=== PATIENT | female | born 1965 | race Caucasian/White ===

== ENCOUNTER → 2019-05-05 15:49 | Outpatient (BNVA) | payer MEDICARE, MEDICAID, SELFPAY | PROVIDERS: Family Provider Nurse Practitioner Family; PCP Family Medicine; Visit Provider Nurse Practitioner Psychiatric/Mental Health | DX: F33.3 Major depressive disorder, recurrent, severe with psychotic symptoms (principal); F41.1 Generalized anxiety disorder; G47.33 Obstructive sleep apnea (adult) (pediatric); F78 Other intellectual disabilities | CPT/HCPCS: 99214; 99215 ==

== ENCOUNTER → 2019-05-15 13:23 | Outpatient (BNVA) | payer MEDICARE, MEDICAID, SELFPAY | PROVIDERS: Family Provider Nurse Practitioner Family; PCP Nurse Practitioner Family; Visit Provider Social Worker | DX: F33.3 Major depressive disorder, recurrent, severe with psychotic symptoms (principal); F41.1 Generalized anxiety disorder; G47.33 Obstructive sleep apnea (adult) (pediatric) | CPT/HCPCS: 90834 ==

== ENCOUNTER → 2019-06-09 10:34 | Outpatient (BNVA) | payer MEDICARE, MEDICAID, SELFPAY | PROVIDERS: Family Provider Nurse Practitioner Family; PCP Nurse Practitioner Family; Visit Provider Nurse Practitioner Psychiatric/Mental Health | DX: F33.3 Major depressive disorder, recurrent, severe with psychotic symptoms (principal); F41.1 Generalized anxiety disorder; G47.33 Obstructive sleep apnea (adult) (pediatric); F78 Other intellectual disabilities | CPT/HCPCS: 99214 ==

== ENCOUNTER → 2019-06-12 12:39 | Outpatient (BNVA) | payer MEDICARE, MEDICAID, SELFPAY | PROVIDERS: Family Provider Nurse Practitioner Family; PCP Nurse Practitioner Family; Visit Provider Social Worker | DX: F33.3 Major depressive disorder, recurrent, severe with psychotic symptoms (principal); F41.1 Generalized anxiety disorder | CPT/HCPCS: 90834 ==

== ENCOUNTER → 2019-08-05 08:19 | Outpatient (BNVA) | payer MEDICARE, MEDICAID, SELFPAY | PROVIDERS: Family Provider Nurse Practitioner Family; PCP Nurse Practitioner Family; Visit Provider Nurse Practitioner Psychiatric/Mental Health | DX: F33.3 Major depressive disorder, recurrent, severe with psychotic symptoms (principal); F41.1 Generalized anxiety disorder; G47.33 Obstructive sleep apnea (adult) (pediatric); F78 Other intellectual disabilities | CPT/HCPCS: 99214 ==

== ENCOUNTER → 2019-08-11 08:25 | Outpatient (BNVA) | payer MEDICARE, MEDICAID, SELFPAY | PROVIDERS: Family Provider Nurse Practitioner Family; PCP Nurse Practitioner Family; Visit Provider Social Worker | DX: F41.1 Generalized anxiety disorder (principal); F33.3 Major depressive disorder, recurrent, severe with psychotic symptoms; F78 Other intellectual disabilities | CPT/HCPCS: 90834 ==

== ENCOUNTER → 2019-09-08 07:43 | Outpatient (BNVA) | payer MEDICARE, MEDICAID, SELFPAY | PROVIDERS: Family Provider Nurse Practitioner Family; PCP Nurse Practitioner Family; Visit Provider Nurse Practitioner Psychiatric/Mental Health | DX: F33.3 Major depressive disorder, recurrent, severe with psychotic symptoms (principal); F41.1 Generalized anxiety disorder; G47.33 Obstructive sleep apnea (adult) (pediatric); F78 Other intellectual disabilities | CPT/HCPCS: 99214 ==

== ENCOUNTER → 2019-09-11 08:01 | Outpatient (BNVA) | payer MEDICARE, MEDICAID, SELFPAY | PROVIDERS: Family Provider Nurse Practitioner Family; PCP Nurse Practitioner Family; Visit Provider Social Worker | DX: F78 Other intellectual disabilities (principal); F41.1 Generalized anxiety disorder; F33.3 Major depressive disorder, recurrent, severe with psychotic symptoms | CPT/HCPCS: 90834 ==

== ENCOUNTER → 2019-09-25 09:18 | Outpatient (BNVA) | payer MEDICARE, MEDICAID, SELFPAY | PROVIDERS: Family Provider Nurse Practitioner Family; PCP Nurse Practitioner Family; Visit Provider Social Worker | DX: F78 Other intellectual disabilities (principal); F41.1 Generalized anxiety disorder; F33.3 Major depressive disorder, recurrent, severe with psychotic symptoms | CPT/HCPCS: 90834 ==

== ENCOUNTER → 2019-10-06 07:30 | Outpatient (BNVA) | payer MEDICARE, MEDICAID, SELFPAY | PROVIDERS: Family Provider Nurse Practitioner Family; PCP Nurse Practitioner Family; Visit Provider Nurse Practitioner Psychiatric/Mental Health | DX: F33.3 Major depressive disorder, recurrent, severe with psychotic symptoms (principal); F41.1 Generalized anxiety disorder; G47.33 Obstructive sleep apnea (adult) (pediatric); F78 Other intellectual disabilities; Z79.899 Other long term (current) drug therapy | CPT/HCPCS: 99214 ==

== ENCOUNTER → 2019-10-07 08:38 | Outpatient (BNVA) | payer MEDICARE, MEDICAID, SELFPAY | PROVIDERS: Family Provider Nurse Practitioner Family; PCP Nurse Practitioner Family; Visit Provider Nurse Practitioner Psychiatric/Mental Health | DX: Z79.899 Other long term (current) drug therapy (principal) | CPT/HCPCS: 80053; 80061; 83036; 85025 ==

== ENCOUNTER → 2019-10-20 07:32 | Outpatient (BNVA) | payer MEDICARE, MEDICAID, SELFPAY | PROVIDERS: Family Provider Nurse Practitioner Family; PCP Nurse Practitioner Family; Visit Provider Nurse Practitioner Psychiatric/Mental Health | DX: F33.3 Major depressive disorder, recurrent, severe with psychotic symptoms (principal); F41.1 Generalized anxiety disorder; G47.33 Obstructive sleep apnea (adult) (pediatric); F78 Other intellectual disabilities | CPT/HCPCS: 99214 ==

== ENCOUNTER → 2019-11-04 07:42 | Outpatient (BNVA) | payer MEDICARE, MEDICAID, SELFPAY | PROVIDERS: Family Provider Nurse Practitioner Family; PCP Nurse Practitioner Family; Visit Provider Nurse Practitioner Psychiatric/Mental Health | DX: F33.3 Major depressive disorder, recurrent, severe with psychotic symptoms (principal); F41.1 Generalized anxiety disorder; G47.33 Obstructive sleep apnea (adult) (pediatric); F78 Other intellectual disabilities | CPT/HCPCS: 99214 ==

== ENCOUNTER → 2019-11-21 07:41 | Outpatient (BNVA) | payer MEDICARE, MEDICAID, SELFPAY | PROVIDERS: Family Provider Nurse Practitioner Family; PCP Nurse Practitioner Family; Visit Provider Nurse Practitioner Psychiatric/Mental Health | DX: F33.3 Major depressive disorder, recurrent, severe with psychotic symptoms (principal); F41.1 Generalized anxiety disorder; G47.33 Obstructive sleep apnea (adult) (pediatric); F79 Unspecified intellectual disabilities | CPT/HCPCS: 99214 ==

== ENCOUNTER → 2019-12-03 07:43 | Outpatient (BNVA) | payer MEDICARE, MEDICAID, SELFPAY | PROVIDERS: Family Provider Nurse Practitioner Family; PCP Nurse Practitioner Family; Visit Provider Nurse Practitioner Psychiatric/Mental Health | DX: F33.3 Major depressive disorder, recurrent, severe with psychotic symptoms (principal); F41.1 Generalized anxiety disorder; G47.33 Obstructive sleep apnea (adult) (pediatric); F78 Other intellectual disabilities | CPT/HCPCS: 99214 ==

== ENCOUNTER → 2019-12-15 08:23 | Outpatient (BNVA) | payer MEDICARE, MEDICAID, SELFPAY | PROVIDERS: Family Provider Nurse Practitioner Family; PCP Nurse Practitioner Family; Visit Provider Nurse Practitioner Psychiatric/Mental Health | DX: F41.1 Generalized anxiety disorder (principal); G47.33 Obstructive sleep apnea (adult) (pediatric); F78 Other intellectual disabilities; F33.3 Major depressive disorder, recurrent, severe with psychotic symptoms | CPT/HCPCS: 99214 ==

== ENCOUNTER 2019-12-15 20:52 | Emergency (ER) | payer MEDICARE, MEDICAID, SELFPAY ==
[2019-12-15 20:53] VITALS: BP 135/101; PULSE 54; RESP 16; TEMP 36.7; O2SAT 98; BMI 48.4
--- NOTE | 2019-12-15 20:57 | ECG_ITS ---
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 Measurements Intervals Gap Rate: 54 P: 30 NH: 145 QRS: 14 QRSD: 94 T: 53 QT: 423 QTc: 404 Interpretive Statements SINUS BRADYCARDIA LOW QRS VOLTAGE IN PRECORDIAL LEADS [QRS DEFLECTION < 1.0 mV IN CHEST LEADS] POSSIBLE RIGHT VENTRICULAR CONDUCTION DELAY [RSR (QR) IN V1/V2] No previous ECG available for comparison Electronically Signed On 12-16-2019 17:25:33 CDT by Jos Ladd M.D. [id number]
--- NOTE | 2019-12-15 20:59 | W.ED.WEAKNES ---
HPI - Weakness General: Chief complaint: Weakness Stated complaint: WAKNESS Time Seen by Provider: 12/15/19 20:53 Source: patient Mode of arrival: ambulatory Limitations: no limitations History of Present Illness: HPI Narrative: 54-year-old female who states she was outside walking her dog this evening started to feel weak and having some dizziness. She states she fell like she got too hot. She states she feels improved now but still does have some slight dizziness when she stands. Denies any vomiting or diarrhea. Denies any fevers. Associated symptoms: Denies chest pain, chills, dysuria, easy bruising, fever(s), nausea or vomiting Review of Systems Const: Denies: fever(s), chills, body aches or change in appetite Eyes: Denies: blurry vision or eye discomfort ENMT: Denies: throat pain or dental pain Card: Denies: chest pain Resp: Denies: dyspnea GI: Denies: abdominal pain, nausea, vomiting or diarrhea : Denies: dysuria Musc: Reports: muscle weakness Skin/Breast: Denies: rash Neuro: Reports: dizziness Psych: Denies: depression Devaughn/Lymph: Denies: easy bruising All/Imm: Denies: urticaria PFSH ED PFSH: Medical History Generalized anxiety disorder 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, recurrent episode with mood-congruent psychotic features Obstructive sleep apnea Social History Smoking and tobacco status: never smoked Physical Exam Const: COMMON NORMALS: no acute distress, patient oriented x3 and healthy appearing HENMT: COMMON NORMALS: normocephalic and atraumatic HEAD & SCALP: normocephalic and atraumatic Eye: COMMON NORMALS: Equal, round and reactive pupils present and EOMs intact bilaterally PUPIL: Yes Equal, round and reactive pupils present Neck/C-Spine: COMMON NORMALS: full ROM and supple Chest: COMMONS NORMALS: normal inspection of the chest and normal palpation of entire chest wall Resp: COMMON NORMALS: normal respiratory effort, No retractions, No use of accessory muscles and clear to auscultation bilaterally AUSCULTATION: clear to auscultation bilaterally Cardio: COMMON NORMALS: regular rate, regular rhythm and No murmurs present (Cardio) RATE: regular rate RHYTHM: regular rhythm GI: COMMON NORMALS: Normal to inspection, nondistended, normoactive bowel sounds present, Soft to palpation, non-tender and no masses PALPATION: Yes Soft to palpation Extremity: COMMON NORMALS: normal to inspection and full ROM Neuro: COMMON NORMALS: patient oriented x3, moves all extremities and no focal motor deficits Psych: COMMON NORMALS: mental status grossly normal, Normal thought process present and cooperative THOUGHT PROCESS: Normal thought process present Skin: COMMON NORMALS: no rashes or lesions noted and no wounds GENERAL SKIN EXAM: no rashes or lesions noted Course Vital Signs: Vital signs: Vital Signs Temperature 98.0 F 12/15/19 20:53 Pulse Rate 89 12/15/19 21:33 Respiratory Rate 16 12/15/19 21:33 Blood Pressure 135/98 12/15/19 21:33 Pulse Oximetry 95 12/15/19 21:33 MDM - Weakness MDM Narrative: Medical decision making narrative: Patient presents here with dizziness along with slight weakness likely due to heat exposure. She feels much improved here. Patient's blood work here is normal and she has no signs of cardiac cause. She is stable for discharge and return if worsening. Lab Data: Labs: Lab Results 12/15/19 12/15/19 Range/Units 21:00 21:00 WBC 9.2 (4.0-10.0) 10^3/ uL RBC 4.62 (4.1-5.3) 10^6/u L Hgb 13.0 (11.5-15.3) g/dL Hct 41.0 (37.0-47.0) % MCV 88.7 (81-99) fL MCH 28.1 (28.0-34.0) pg MCHC 31.7 (30.0-36.0) g/dL RDW 12.7 (12.1-15.1) % Plt Count 236 (130-400) 10^3/c mm MPV 10.5 H (7.4-10.4) fL Neut % (Auto) 65.4 % Lymph % (Auto) 26.4 % Rains % (Auto) 7.5 % Eos % (Auto) 0.0 % Baso % (Auto) 0.3 % Neut # (Auto) 5.97 (1.8-7.7) 10^3/u L Lymph # (Auto) 2.4 (0.8-4.8) 10^3/u L Rains # (Auto) 0.7 (0.2-0.9) 10^3/u L Eos # (Auto) 0.0 (0.0-0.8) 10^3/u L Baso # (Auto) 0.0 (0.0-0.1) 10^3/u L Nucleated RBC % (a uto) 0 % Nucleated RBCs # 0.0 /100WBC Sodium 136 (136-145) mmol/L Potassium 4.1 (3.5-5.1) mmol/L Chloride 101 (98-107) mmol/L Carbon Dioxide 27 (22-29) mmol/L Anion Gap 12.1 (5-19) BUN 12 (6-20) mg/dL Creatinine 0.6 (0.5-0.9) mg/dL GFR Calculation 104.2 (90-130) mL/min Glucose 103 (65-115) mg/dL Calculated Osmolal ity 278 L (285-295) mOsm/k g Calcium 9.9 (8.5-10.5) mg/dL Total Bilirubin 0.2 (0.15-1.2) mg/dL AST 13 (0-32) U/L ALT 15 (0-33) U/L Alkaline Phosphata se 104 (35-105) IU/L Total Protein 7.2 (6.6-8.7) g/dL Albumin 4.3 (3.5-5.2) g/dL Globulin 2.9 (1.3-4.6) g/dL EKG Data^: EKG 1: Attestation: I personally reviewed and interpreted this EKG as follows: EKG interpretation date: 12/15/19 EKG interpretation time: 21:12 Interpretation: sinus melani hr [address] or t wave abnormalities qrs 94 qtc 410 Discharge Plan Discharge Patient Disposition: Home Clinical Impression: Dizziness Condition: Stable Prescriptions: No Action levothyroxine 100 mcg capsule 100 mcg PO ONCE RF: 0 ibuprofen 200 mg capsule 600 mg PO DAILY PRNRF: 0 simvastatin 10 mg tablet 10 mg PO ONCE RF: 0 cetirizine [Zyrtec] 10 mg tablet 10 mg PO ONCE RF: 0 triamcinolone acetonide [Triderm] 0.1 % cream 1 applic TOPICAL BID PRNRF: 0 fluticasone propionate [Flonase Allergy Relief] 50 mcg/actuation spray,suspension 2 spray INTRANASAL DAILY PRNRF: 0 Multivitamin Women 50 Plus 8 mg iron-400 mcg-300 mcg tablet 1 tab PO DAILY RF: 0 risperidone [Risperdal] 0.5 mg tablet 0.5 mg PO QAM Qty: 90 RF: 2 risperidone [Risperdal] 0.5 mg tablet 1 mg PO .QHS Qty: 180 RF: 2 benztropine 1 mg tablet 1 mg PO BID Qty: 180 RF: 2 buspirone 15 mg tablet 15 mg PO TID Qty: 270 RF: 2 sertraline [Zoloft] 100 mg tablet 200 mg PO .morning Qty: 180 RF: 2 Colace Clear 50 mg capsule 50 mg PO DAILY PRNRF: 0 propranolol 10 mg tablet 10 mg PO .morning Qty: 30 RF: 3 diazepam [Valium] 5 mg tablet 5 mg PO TID PRN (Reason: anxiety) Qty: 90 RF: 3 Discharge Orders: Discharge Order (Routine); Ordered 12/15/19 Ordered By: Celine Minor Referrals: MARIPOSA ISBELL EMBOSSING CALENDER OPERATOR [Primary Care Provider] - 1-3 days Discharge Diet: Advance as tolerated Discharge Activity: Resume usual activity Patient Instructions: Dizziness (ED) Coding Level of Care Code ED Education Diagnostician for Tiffanie Fwcaitlin Exam Comprehensive
[2019-12-15 21:07] LABS: Basophils % 0.3 %; Lymphocytes # 2.4 10^3/uL (0.8-4.8); Lymphocytes % 26.4 %; Mean Corpuscular HGB Conc 31.7 g/dL (30.0-36.0); Mean Corpuscular Hemoglobin 28.1 pg (28.0-34.0); Mean Corpuscular Volume 88.7 fL (81-99); Mean Platelet Volume 10.5 fL (7.4-10.4); Monocytes # 0.7 10^3/uL (0.2-0.9); Monocytes % 7.5 %; Neutrophils # 5.97 10^3/uL (1.8-7.7); Neutrophils % 65.4 %; Nucleated Red Blood Cells % 0 %; Platelet Count 236 10^3/cmm (130-400); Red Blood Count 4.62 10^6/uL (4.1-5.3); Red Cell Distribution Width 12.7 % (12.1-15.1); White Blood Count 9.2 10^3/uL (4.0-10.0)
[2019-12-15] MEDS: sodium chloride 0.9% 1,000 ML 999 ML IV (21:14)
[2019-12-15 21:25] LABS: Alanine Aminotransferase 15 U/L (0-33); Albumin Level 4.3 g/dL (3.5-5.2); Alkaline Phosphatase 104 IU/L (35-105); Anion Gap 12.1 (5-19); Aspartate Amino Transferase 13 U/L (0-32); Blood Urea Nitrogen 12 mg/dL (6-20); Calcium 9.9 mg/dL (8.5-10.5); Carbon Dioxide 27 mmol/L (22-29); Chloride 101 mmol/L (98-107); Creatinine Clr Calc Pharmacy 152.3106; Globulin 2.9 g/dL (1.3-4.6); Glomerular Filtration Rate 104.2 mL/min (90-130); Glucose 103 mg/dL (65-115); Osmolality Calculated 278 mOsm/kg (285-295); Potassium 4.1 mmol/L (3.5-5.1); Sodium 136 mmol/L (136-145); Total Bilirubin 0.2 mg/dL (0.15-1.2); Total Protein 7.2 g/dL (6.6-8.7)
[2019-12-15 21:33] VITALS: BP 135/98; PULSE 89; RESP 16; O2SAT 95
[2019-12-15 22:12] VITALS: BP 132/87; PULSE 87; RESP 16; O2SAT 98
== END 2019-12-15 22:13 | disposition home or self-care (01) ==
PROVIDERS: Emergency Provider Emergency Medicine; PCP Nurse Practitioner Family
DX: R42 Dizziness and giddiness (principal)
CPT/HCPCS: 12345; 36415; 80053; 85025; 93005; 96360; 99282; 99283; J7030

== ENCOUNTER → 2019-12-30 07:17 | Outpatient (BNVA) | payer MEDICARE, MEDICAID, SELFPAY | PROVIDERS: PCP Nurse Practitioner Family; Visit Provider Nurse Practitioner Psychiatric/Mental Health | DX: F33.3 Major depressive disorder, recurrent, severe with psychotic symptoms (principal); F41.1 Generalized anxiety disorder; G47.33 Obstructive sleep apnea (adult) (pediatric); F78 Other intellectual disabilities | CPT/HCPCS: 99214 ==

== ENCOUNTER → 2020-01-07 09:11 | Outpatient (BNVA) | payer OTHER, SELFPAY | PROVIDERS: PCP Nurse Practitioner Family; Visit Provider Nurse Practitioner Psychiatric/Mental Health | DX: F33.3 Major depressive disorder, recurrent, severe with psychotic symptoms (principal); F41.1 Generalized anxiety disorder; Z79.899 Other long term (current) drug therapy | CPT/HCPCS: 80061; 83036 ==

== ENCOUNTER → 2020-01-14 07:27 | Outpatient (BNVA) | payer MEDICARE, MEDICAID, SELFPAY ==
[2020-01-12 14:26] VITALS: BP 132/71; BMI 45.1
== END ==
PROVIDERS: PCP Nurse Practitioner Family; Visit Provider Nurse Practitioner Psychiatric/Mental Health
DX: F33.3 Major depressive disorder, recurrent, severe with psychotic symptoms (principal); F41.1 Generalized anxiety disorder; G47.33 Obstructive sleep apnea (adult) (pediatric); F78 Other intellectual disabilities
CPT/HCPCS: 99214

== ENCOUNTER → 2020-01-26 07:44 | Outpatient (BNVA) | payer MEDICARE, MEDICAID, SELFPAY ==
[2020-01-21 10:33] VITALS: BP 132/71; BMI 45.1
== END ==
PROVIDERS: PCP Nurse Practitioner Family; Visit Provider Nurse Practitioner Psychiatric/Mental Health
DX: F33.3 Major depressive disorder, recurrent, severe with psychotic symptoms (principal); F41.1 Generalized anxiety disorder; G47.33 Obstructive sleep apnea (adult) (pediatric); F78 Other intellectual disabilities
CPT/HCPCS: 99214

== ENCOUNTER 2020-01-30 21:51 | Emergency (ER) | payer MEDICARE, MEDICAID, SELFPAY ==
[2020-01-21 10:33] VITALS: BP 132/71; BMI 45.1
[2020-01-30 21:58] VITALS: BP 152/84; PULSE 63; RESP 18; TEMP 37; O2SAT 94; BMI 46.0
--- NOTE | 2020-01-30 22:02 | CTR_ITS ---
PROCEDURE INFORMATION: Exam: CT Head Without Contrast Exam date and time: 01/30/2020 10:06 PM Age: 54 years old Clinical indication: Injury or trauma; Fall; Blunt trauma (contusions or hematomas); Without loss of consciousness; Additional info: Fall/injury TECHNIQUE: Imaging protocol: Computed tomography of the head without contrast. Radiation optimization: All CT scans at this facility use at least one of these dose optimization techniques: automated exposure control; mA and/or kV adjustment per patient size (includes targeted exams where dose is matched to clinical indication); or iterative reconstruction. COMPARISON: No relevant prior studies available. RADIATION DOSE METRICS: Total DLP (mGy-cm): 861.35 FINDINGS: Brain: Normal. No hemorrhage. Unremarkable white matter. No mass effect. Cerebral ventricles: No ventriculomegaly. Bones/joints: Unremarkable. No acute fracture. Paranasal sinuses: Visualized sinuses are unremarkable. No fluid levels. Mastoid air cells: Left mastoid and middle ear opacification. Soft tissues: Parietal scalp hematoma. CT/CT head wo con* [id number] IMPRESSION: 1. No acute intracranial abnormality. 2. Parietal scalp hematoma. 3. Left mastoid and middle ear opacification. Radiation Dose CTDIVOL = (mGy): DLP = 861.35 (mGy-cm)
--- NOTE | 2020-01-30 22:02 | XRR_ITS ---
PROCEDURE INFORMATION: Exam: XR Right Knee Exam date and time: 01/30/2020 10:27 PM Age: 54 years old Clinical indication: Injury or trauma; Fall; Blunt trauma; Patient HX: Fell while walking dog, right knee pain; Additional info: Fall/injury TECHNIQUE: Imaging protocol: XR Right knee. Views: 3 views. COMPARISON: No relevant prior studies available. FINDINGS: Bones/joints: Moderate tricompartmental degenerative joint disease. Soft tissues: Normal. XR/XR knee RT 3V* [id number] IMPRESSION: Moderate tricompartmental degenerative joint disease.
[2020-01-30] MEDS: ondansetron 4 MG Tablet 8 MG PO (23:19)
--- NOTE | 2020-01-30 23:35 | W.ED.FALL ---
HPI - Fall General: Chief Complaint: Fall Stated Complaint: head trauma, head lac Time Seen by Provider: 01/30/20 22:02 Source: patient and EMS Mode of arrival: EMS Limitations: no limitations History of Present Illness: HPI Narrative: Emely is a nice 54-year-old female who tripped walking outside tonight walking her dog. She fell and hit her head. She has a severe headache but denies any loss of consciousness. She denies any neck pain. She also did hurt her right knee she is uncertain if she twisted it or landed on it. She denies any other injuries. She is not any blood thinners. She is not been nauseated or had any vomiting. Associated symptoms-after fall: Reports headache(s); Denies abdominal pain, chest pain, confusion, difficulty walking, hematuria, lightheadedness, neck pain or vertigo Review of Systems Const: Denies: fever(s), chills, body aches, fatigue, malaise or diaphoresis Eyes: Denies: change in vision, blurry vision, photophobia, eye discomfort, eye discharge, eye redness or yellow eyes ENMT: Denies: throat pain, odynophagia, hoarseness, swelling of lips/tongue, ear or mastoid pain, ear discharge, change in hearing or nasal discharge Card: Denies: chest pain, palpitations, irregular heart rhythm, edema, lightheadedness, syncope, pre-syncope, dyspnea on exertion or orthopnea Resp: Denies: dyspnea, productive cough, non-productive cough, wheezing, hemoptysis or chest congestion GI: Denies: abdominal pain, nausea, vomiting, hematemesis, coffee ground emesis, heartburn, diarrhea, constipation, GI cramping, hematochezia or melena : Denies: flank pain, dysuria, urinary frequency, urinary urgency or hematuria Musc: Reports: joint pain; Denies: neck pain, back pain, extremity pain, extremity swelling, joint swelling, joint redness, joint warmth or joint stiffness Skin/Breast: Denies: rash, pruritus, erythema, skin pain or skin tenderness Neuro: Reports: headache(s); Denies: numbness in extremities, weakness in extremities, sensory changes, lack of coordination, difficulty walking, dizziness, vertigo, confusion, Slurred speech present or seizure-like activity Edvaughn/Lymph: Denies: easy bruising, easy bleeding, petechiae, purpura or enlarged lymph nodes All/Imm: Denies: urticaria, throat swelling, tongue swelling, facial swelling or acute wheezing PFSH ED PFSH: Medical History Generalized anxiety disorder 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, recurrent episode with mood-congruent psychotic features Obstructive sleep apnea Family History Grandfather CAD (coronary artery disease) Grandmother CHF (congestive heart failure) Father Cancer Mother COPD (chronic obstructive pulmonary disease) CHF (congestive heart failure) Hypertension Afib Sister CHF (congestive heart failure) Social History Smoking and tobacco status: never smoked Alcohol intake: never Marital status: Single Current gender identity: Female Physical Exam Const: COMMON NORMALS: no acute distress, patient oriented x3, no limitations and alert GENERAL APPEARANCE: cooperative HENMT: COMMON NORMALS: normocephalic, atraumatic, external ears normal, EAC's normal and Normal external nose present HEAD & SCALP: normal to inspection, normocephalic and atraumatic FACE & SINUS: normal facial exam and face symmetric NOSE: Normal external nose present and Normal nares present EXTERNAL EAR: Yes external ears normal EXTERNAL AUDITORY CANAL: EAC's normal MOUTH: Normal oral and palatal mucosa present, lip normal and tongue normal Eye: COMMON NORMALS: Equal, round and reactive pupils present and conjunctivae normal GENERAL EYE: appearance normal, both eyes and all related structures ALIGNMENT: Yes alignment normal PERIORBITAL: periorbital findings normal EYELID: eyelids normal CONJUNCTIVA: Yes conjunctivae normal SCLERA: sclerae normal PUPIL: Yes Equal, round and reactive pupils present Neck/C-Spine: COMMON NORMALS: full ROM, no lymphadenopathy, supple, no meningeal signs and no JVD GENERAL: Yes normal visual inspection and Yes trachea midline Chest: COMMONS NORMALS: normal inspection of the chest and normal palpation of entire chest wall Resp: COMMON NORMALS: normal respiratory effort, No retractions, No use of accessory muscles and clear to auscultation bilaterally EFFORT & INSPECTION: Yes able to speak in complete sentences and Yes symmetric chest movement AUSCULTATION: clear to auscultation bilaterally, no crackles, no rales, no rhonchi and no wheezes Cardio: COMMON NORMALS: no JVD, regular rate, regular rhythm, S1 normal heart sound present and S2 normal heart sound present RATE: regular rate RHYTHM: regular rhythm HEART SOUNDS: S1 normal heart sound present, S2 normal heart sound present, no click, no gallops, no murmurs and no rubs GI: COMMON NORMALS: Soft to palpation and No hepatosplenomegaly present PALPATION: Yes Soft to palpation, No Tenderness to palpation present (GI), No Guarding due to palpation present (GI), No Rigid due to palpation, Yes No hepatosplenomegaly present, No Hernia present, No Palpable mass present and No Pulsatile mass present : COMMON NORMALS: Yes no CVA tenderness BLADDER/KIDNEY EXAM: Yes no CVA tenderness EXTERNAL FEMALE EXAM: No Hernia present Back/Pelvis: COMMON NORMALS: no CVA tenderness, thoracic and lumbar spine normal to inspection, no thoracic nor lumbar tenderness and thoraco-lumbar ROM normal Extremity: COMMON NORMALS: normal to inspection, full ROM, capillary refill normal, no joint enlargement, no clubbing, cyanosis or edema and no calf tenderness Neuro: COMMON NORMALS: patient oriented x3, CN's II-XII intact bilaterally, moves all extremities, no focal motor deficits and no sensory deficits noted SENSORIUM/ORIENTATION: Yes alert MENINGEAL SIGNS: Yes no meningeal signs SPEECH: speech normal Psych: COMMON NORMALS: mental status grossly normal, Normal thought process present, cooperative, normal affect, speech normal and activity/motor behavior normal SPEECH: Yes normal speech THOUGHT PROCESS: Normal thought process present Skin: COMMON NORMALS: no rashes or lesions noted, turgor normal, no jaundice, no petechiae and no mottling GENERAL SKIN EXAM: no rashes or lesions noted and turgor normal Course Vital Signs: Vital signs: Vital Signs Temperature 98.6 F 01/30/20 21:58 Pulse Rate 67 01/30/20 23:48 Respiratory Rate 16 01/30/20 23:48 Blood Pressure 123/76 01/30/20 23:48 Pulse Oximetry 99 01/30/20 23:48 MDM - Fall MDM Narrative: Medical decision making narrative: 2339 -patient is able to ambulate here without any difficulty. She denies having other complaints at this time. I will go ahead and discharge her home with instructions to follow-up with the orthopedic doctor to recheck her knee. I have also sent her home with concussion instructions. She did have some nausea while she was here so we will also discharge her with Zofran. Imaging Data^: XR Right Knee: Attestation: I personally reviewed and interpreted this imaging study as follows: My impression: No acute fractures or dislocations Discharge Plan Discharge Patient Disposition: Home Clinical Impression: Concussion without loss of consciousness Qualifiers: Encounter type: initial encounter Qualified Code(s): S06.0X0A - Concussion without loss of consciousness, initial encounter Contusion of knee, right Qualifiers: Encounter type: initial encounter Qualified Code(s): S80.01XA - Contusion of right knee, initial encounter Condition: Stable Prescriptions: No Action levothyroxine 100 mcg capsule 100 mcg PO ONCE RF: 0 ibuprofen 200 mg capsule 600 mg PO DAILY PRNRF: 0 simvastatin 10 mg tablet 10 mg PO ONCE RF: 0 cetirizine [Zyrtec] 10 mg tablet 10 mg PO ONCE RF: 0 triamcinolone acetonide [Triderm] 0.1 % cream 1 applic TOPICAL BID PRNRF: 0 fluticasone propionate [Flonase Allergy Relief] 50 mcg/actuation spray,suspension 2 spray INTRANASAL DAILY PRNRF: 0 Multivitamin Women 50 Plus 8 mg iron-400 mcg-300 mcg tablet 1 tab PO DAILY RF: 0 risperidone [Risperdal] 0.5 mg tablet 0.5 mg PO QAM Qty: 90 RF: 2 risperidone [Risperdal] 0.5 mg tablet 1 mg PO .QHS Qty: 180 RF: 2 sertraline [Zoloft] 100 mg tablet 200 mg PO .morning Qty: 180 RF: 2 buspirone 15 mg tablet 15 mg PO TID Qty: 270 RF: 2 benztropine 1 mg tablet 1 mg PO BID Qty: 180 RF: 2 propranolol 10 mg tablet 10 mg PO .morning Qty: 90 RF: 2 Colace Clear 50 mg capsule 50 mg PO DAILY PRNRF: 0 diazepam [Valium] 5 mg tablet 5 mg PO TID PRN (Reason: anxiety) Qty: 90 RF: 3 Discharge Orders: Discharge Order (Routine); Ordered 01/30/20 Ordered By: Genie Estevez Referrals: MARIPOSA ISBELL CLIENT EXPERIENCE CONSULTANT [Primary Care Provider] - 1-3 days Discharge Diet: Advance as tolerated Discharge Activity: Increase activity as tolerated Patient Instructions: Concussion (ED) Activity Restrictions/Additional Instructions: Please return to the ER immediately for any of the signs or symptoms listed on your discharge instruction sheets, worsening/changing of your symptoms, you are not getting better as quickly as expected, or for ANY other cause or concerns. Discharge Date/Time: 01/30/20 23:50 Coding Level of Care Code ED Emergency Medical Dispatcher for Naomig Fwd Exam Comprehensive
[2020-01-30 23:48] VITALS: BP 123/76; PULSE 67; RESP 16; O2SAT 99
== END 2020-01-30 23:50 | disposition home or self-care (01) ==
PROVIDERS: Emergency Provider Emergency Medicine; PCP Nurse Practitioner Family
DX: S06.0X0A Concussion without loss of consciousness, initial encounter (principal); S80.01XA Contusion of right knee, initial encounter; W01.0XXA Fall on same level from slipping, tripping and stumbling without subsequent striking against object, initial encounter
CPT/HCPCS: 12345; 70450; 73562; 99281; 99283; Q0162

== ENCOUNTER → 2020-02-11 07:26 | Outpatient (BNVA) | payer MEDICARE, MEDICAID, SELFPAY ==
[2020-01-21 10:33] VITALS: BP 132/71; BMI 45.1
== END ==
PROVIDERS: PCP Nurse Practitioner Family; Visit Provider Nurse Practitioner Psychiatric/Mental Health
DX: F33.3 Major depressive disorder, recurrent, severe with psychotic symptoms (principal); F41.1 Generalized anxiety disorder; G47.33 Obstructive sleep apnea (adult) (pediatric); F78 Other intellectual disabilities
CPT/HCPCS: 99214

== ENCOUNTER → 2020-02-25 07:26 | Outpatient (BNVA) | payer MEDICARE, MEDICAID, SELFPAY ==
[2020-02-19 10:36] VITALS: BP 132/71; BMI 45.1
== END ==
PROVIDERS: PCP Nurse Practitioner Family; Visit Provider Nurse Practitioner Psychiatric/Mental Health
DX: F33.3 Major depressive disorder, recurrent, severe with psychotic symptoms (principal); F41.1 Generalized anxiety disorder; G47.33 Obstructive sleep apnea (adult) (pediatric); F78 Other intellectual disabilities; F43.12 Post-traumatic stress disorder, chronic
CPT/HCPCS: 99214

== ENCOUNTER → 2020-03-10 07:31 | Outpatient (BNVA) | payer MEDICARE, MEDICAID, SELFPAY ==
[2020-02-19 10:36] VITALS: BP 132/71; BMI 45.1
== END ==
PROVIDERS: PCP Nurse Practitioner Family; Visit Provider Nurse Practitioner Psychiatric/Mental Health
DX: F33.3 Major depressive disorder, recurrent, severe with psychotic symptoms (principal); F41.1 Generalized anxiety disorder; G47.33 Obstructive sleep apnea (adult) (pediatric); F78 Other intellectual disabilities
CPT/HCPCS: 99214

== ENCOUNTER → 2020-03-24 07:35 | Outpatient (BNVA) | payer MEDICARE, MEDICAID, SELFPAY ==
[2020-02-19 10:36] VITALS: BP 132/71; BMI 45.1
== END ==
PROVIDERS: PCP Nurse Practitioner Family; Visit Provider Nurse Practitioner Psychiatric/Mental Health
DX: F33.3 Major depressive disorder, recurrent, severe with psychotic symptoms (principal); F41.1 Generalized anxiety disorder; G47.33 Obstructive sleep apnea (adult) (pediatric); F78 Other intellectual disabilities
CPT/HCPCS: 99214

== ENCOUNTER → 2020-04-07 07:38 | Outpatient (BNVA) | payer MEDICARE, MEDICAID, SELFPAY ==
[2020-03-30 11:13] VITALS: BP 132/71; BMI 45.1
== END ==
PROVIDERS: PCP Nurse Practitioner Family; Visit Provider Nurse Practitioner Psychiatric/Mental Health
DX: F33.3 Major depressive disorder, recurrent, severe with psychotic symptoms (principal); F41.1 Generalized anxiety disorder; G47.33 Obstructive sleep apnea (adult) (pediatric); F78 Other intellectual disabilities
CPT/HCPCS: 99214

== ENCOUNTER → 2020-05-12 07:37 | Outpatient (BNVA) | payer MEDICARE, MEDICAID, SELFPAY ==
[2020-05-10 11:28] VITALS: BP 132/71; BMI 45.1
== END ==
PROVIDERS: PCP Nurse Practitioner Family; Visit Provider Nurse Practitioner Psychiatric/Mental Health
DX: F33.3 Major depressive disorder, recurrent, severe with psychotic symptoms (principal); F41.1 Generalized anxiety disorder; G47.33 Obstructive sleep apnea (adult) (pediatric); F78 Other intellectual disabilities
CPT/HCPCS: 99214

== ENCOUNTER 2020-05-28 09:44 | Outpatient (CLI) | payer MEDICARE, MEDICAID, SELFPAY ==
[2020-05-10 11:28] VITALS: BP 132/71; BMI 45.1
--- NOTE | 2020-05-28 09:51 | MM_ITS ---
WS: [id number] BILATERAL DIGITAL SCREENING MAMMOGRAPHY WITH CAD CLINICAL INFORMATION: SCREENING HISTORY: Screening mammogram. No current complaints. COMPARISON: TECHNIQUE: Bilateral CC and MLO views. FINDINGS: The breasts are composed of heterogeneous fibroglandular density tissue, which can limit the detectio n of small underlying mass lesions. Stable 10 mm nodular density inferior medial left breast No suspi cious mass, asymmetry, calcifications, or architectural distortion. No evidence of malignancy. Dystro phic calcification left breast. Intramammary lymph node posterior superior right breast is unchanged. MM/[place] [id number] IMPRESSION: BI-RADS: 2-Benign FOLLOW UP: 1 Year Follow-up Recommend return to annual screening mammography.
== END 2020-05-28 09:45 | disposition home or self-care (01) ==
LOC: RADSHAW 09:46
PROVIDERS: PCP Nurse Practitioner Family; Visit Provider Nurse Practitioner Family
DX: Z12.31 Encounter for screening mammogram for malignant neoplasm of breast (principal)
CPT/HCPCS: 77067; 99214

== ENCOUNTER → 2020-06-14 07:34 | Outpatient (BNVA) | payer MEDICARE, MEDICAID, SELFPAY ==
[2020-05-10 11:28] VITALS: BP 132/71; BMI 45.1
== END ==
PROVIDERS: PCP Nurse Practitioner Family; Visit Provider Nurse Practitioner Psychiatric/Mental Health
DX: F33.3 Major depressive disorder, recurrent, severe with psychotic symptoms (principal); F41.1 Generalized anxiety disorder; G47.33 Obstructive sleep apnea (adult) (pediatric); F78 Other intellectual disabilities
CPT/HCPCS: 99214

== ENCOUNTER 2020-06-21 09:20 | Inpatient (IN) | payer MEDICARE, MEDICAID, SELFPAY ==
[2020-05-10 11:28] VITALS: BP 132/71; BMI 45.1
[2020-06-21 09:20] VITALS: BP 133/75; PULSE 62; RESP 17; TEMP 36.6; O2SAT 97; BMI 46.3
--- NOTE | 2020-06-21 09:21 | ECG_ITS ---
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 Measurements Intervals [place] Rate: 55 P: 26 [place]: 129 QRS: 22 QRSD: 92 T: 40 QT: 417 QTc: 401 Interpretive Statements SINUS BRADYCARDIA LOW QRS VOLTAGE IN PRECORDIAL LEADS [QRS DEFLECTION < 1.0 mV IN CHEST LEADS] Compared to ECG 12/15/2019 21:12:50 No significant changes Electronically Signed On 06-21-2020 18:53:03 HELICOPTER MECHANIC by Alvarez Devi M.D. [email or web address] [id number]
--- NOTE | 2020-06-21 09:30 | ED_ITS ---
HPI - Psych General: Chief Complaint: Psychiatric Symptoms Stated Complaint: SI Time Seen by Provider: 06/21/20 09:21 History of Present Illness: HPI Narrative: 55-year-old female presents emergency room via EMS with complaints of suicidal ideation. States she has been depressed had thoughts of harming self by overdosing medications. She has had a history of depression she usually seen at [facility] she is more upset lately some issues regarding financial concerns. She denies having done anything to harm herself up to this point. complaint: suicidal ideation Onset (ago): hour(s) Duration: constant History of same: Yes Relieving factors: none Exacerbating factors: none Associated psychiatric symptoms: depression and suicidal ideation Associated symptoms: Reports depression and suicidal ideation; Deny auditory hallucinations, visual hallucinations, delusions, homicidal ideation or racing thoughts Treatments prior to arrival: none If self harm: admits thoughts of self harm and has plan Review of Systems Const: Denies: fever(s), chills, body aches, change in appetite, fatigue or malaise ENMT: Denies: throat pain, ear or mastoid pain, nasal discharge or nasal congestion Card: Denies: chest pain, edema, dyspnea on exertion or orthopnea Resp: Denies: dyspnea, productive cough or non-productive cough GI: Denies: abdominal pain, nausea, vomiting, hematemesis, coffee ground emesis, diarrhea, constipation, bloating, hematochezia or melena : Denies: flank pain, difficulty voiding, dysuria, urinary frequency or urinary urgency Skin/Breast: Denies: rash or pruritus Psych: Reports: depression and suicidal ideation; Denies: visual hallucinations, auditory hallucinations or homicidal ideation [facility] ED PFS: Medical History (Updated 06/21/20 @ 11:03 by Brandyn Shelby DO) Generalized anxiety disorder 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, recurrent episode with mood-congruent psychotic features Obstructive sleep apnea Family History Grandfather CAD (coronary artery disease) Grandmother CHF (congestive heart failure) Father Cancer Mother COPD (chronic obstructive pulmonary disease) CHF (congestive heart failure) Hypertension Afib Sister CHF (congestive heart failure) Social History Smoking and tobacco status: never smoked Alcohol intake: never Marital status: Single Current gender identity: Female Physical Exam Const: COMMON NORMALS: no acute distress GENERAL APPEARANCE: cooperative and comfortable ORIENTATION/CONSCIOUSNESS: Yes awake, Yes oriented to person, Yes oriented to place and Yes oriented to time HENMT: COMMON NORMALS: normocephalic, atraumatic and hearing grossly normal bilaterally HEAD & SCALP: normocephalic and atraumatic Neck/C-Spine: COMMON NORMALS: no JVD Resp: COMMON NORMALS: normal respiratory effort, No retractions, No use of accessory muscles and clear to auscultation bilaterally AUSCULTATION: clear to auscultation bilaterally Cardio: COMMON NORMALS: no JVD, regular rate, regular rhythm and No murmurs present (Cardio) RATE: regular rate RHYTHM: regular rhythm GI: COMMON NORMALS: Soft to palpation and No hepatosplenomegaly present AUSCULTATION: Yes normoactive bowel sounds PALPATION: Yes Soft to palpation, No Tenderness to palpation present (GI), No Guarding due to palpation present (GI) and Yes No hepatosplenomegaly present Extremity: COMMON NORMALS: normal to inspection, capillary refill normal, no clubbing, cyanosis or edema, no calf tenderness and no pedal edema Neuro: SENSORIUM/ORIENTATION: Yes oriented to person, Yes oriented to place and Yes oriented to time Psych: THOUGHT CONTENT: No delusions Skin: COMMON NORMALS: no rashes or lesions noted GENERAL SKIN EXAM: no rashes or lesions noted MDM - Psych MDM Narrative: Medical decision making narrative: Patient has suicidal ideatio n. She is willing to be admitted. Discussed Dr. Rendon. Will admit to neuro psych at this point did not do a 96-hour hold. Lab Data: Labs: Lab Results 06/21/20 06/21/20 06/21/20 Range/Units 09:30 09:30 09:35 WBC 5.4 (4.0-10.0) 10^3/ uL RBC 4.60 (4.1-5.3) 10^6/u L Hgb 13.3 (11.5-15.3) g/dL Hct 39.6 (37.0-47.0) % MCV 86.1 (81-99) fL MCH 28.9 (28.0-34.0) pg MCHC 33.6 (30.0-36.0) g/dL RDW 13.1 (12.1-15.1) % Plt Count 206 (130-400) 10^3/c mm MPV 10.1 (7.4-10.4) fL Neut % (Auto) 66.4 % Lymph % (Auto) 26.9 % [place] % (Auto) 6.3 % Eos % (Auto) 0.0 % Baso % (Auto) 0.2 % Neut # (Auto) 3.59 (1.8-7.7) 10^3/u L Lymph # (Auto) 1.5 (0.8-4.8) 10^3/u L [place] # (Auto) 0.3 (0.2-0.9) 10^3/u L Eos # (Auto) 0.0 (0.0-0.8) 10^3/u L Baso # (Auto) 0.0 (0.0-0.1) 10^3/u L Nucleated RBC % (a uto) 0 % Nucleated RBCs # 0.0 /100WBC Sodium 140 (136-145) mmol/L Potassium 4.3 (3.5-5.1) mmol/L Chloride 104 (98-107) mmol/L Carbon Dioxide 27 (22-29) mmol/L Anion Gap 13.3 (5-19) BUN 11 (6-20) mg/dL Creatinine 0.6 (0.5-0.9) mg/dL GFR Calculation 103.8 (90-130) mL/min Glucose 94 (65-115) mg/dL Calculated Osmolal ity 289 (285-295) mOsm/k g Calcium 9.8 (8.5-10.5) mg/dL Total Bilirubin 0.3 (0.15-1.2) mg/dL AST 17 (0-32) U/L ALT 18 (0-33) U/L Alkaline Phosphata se 88 (35-105) IU/L Total Protein 7.3 (6.6-8.7) g/dL Albumin 4.2 (3.5-5.2) g/dL Globulin 3.1 (1.3-4.6) g/dL Urine Color Yellow (Yellow) Urine Appearance Clear (CLEAR) Urine pH 5 (5-7) Ur Specific Gravit y 1.005 (1.005-1.030) Urine Protein Neg (Negative) Urine Glucose (UA) Norm (Normal) Urine Ketones Negative (Negative) Urine Blood Neg (Negative) Urine Nitrate Negative (Negative) Urine Bilirubin Neg (Negative) Urine Urobilinogen Norm (Negative) mg/dL Ur Leukocyte Celestina ase Negative (Negative) Salicylates < 0.3 L (3-10) mg/dL Acetaminophen < 5.0 L (10-30) ug/mL Discharge Plan Discharge Patient Disposition: Admitted As Inpatient Clinical Impression: Suicidal ideation, Depression Condition: Stable Prescriptions: No Action levothyroxine 100 mcg capsule 100 mcg PO ONCE RF: 0 ibuprofen 200 mg capsule 600 mg PO DAILY PRNRF: 0 simvastatin 10 mg tablet 10 mg PO ONCE RF: 0 cetirizine [Zyrtec] 10 mg tablet 10 mg PO ONCE RF: 0 triamcinolone acetonide [Triderm] 0.1 % cream 1 applic TOPICAL BID PRNRF: 0 fluticasone propionate [Flonase Allergy Relief] 50 mcg/actuation spray,suspension 2 spray INTRANASAL DAILY PRNRF: 0 Multivitamin Women 50 Plus 8 mg iron-400 mcg-300 mcg tablet 1 tab PO DAILY RF: 0 Colace Clear 50 mg capsule 50 mg PO DAILY PRNRF: 0 omega-3 fatty acids [Fish Oil Concentrate] 1,000 mg capsule 1,000 mg PO DAILY RF: 0 benztropine 1 mg tablet 1 mg PO BID Qty: 180 RF: 2 propranolol 10 mg tablet 10 mg PO .morning Qty: 90 RF: 2 risperidone [Risperdal] 0.5 mg tablet 0.5 mg PO QAM Qty: 90 RF: 2 risperidone [Risperdal] 0.5 mg tablet 1 mg PO .QHS Qty: 180 RF: 2 sertraline [Zoloft] 100 mg tablet 200 mg PO .morning Qty: 180 RF: 2 buspirone 10 mg tablet 20 mg PO TID 30 Days Qty: 180 RF: 3 diazepam [Valium] 5 mg tablet 5 mg PO TID PRN (Reason: anxiety) Qty: 90 RF: 3 Referrals: Lida Tijerina, IT SUPPORT CONSULTANT [Primary Care Provider] - Patient Instructions: Opioid Safety Coding Level of Care Code ED [employer]andem [employer] Operator for [facility] Fwd Exam Comprehensive
[2020-06-21 09:50] LABS: Basophils % 0.2 %; Hematocrit 39.6 % (37.0-47.0); Hemoglobin 13.3 g/dL (11.5-15.3); Lymphocytes # 1.5 10^3/uL (0.8-4.8); Lymphocytes % 26.9 %; Mean Corpuscular HGB Conc 33.6 g/dL (30.0-36.0); Mean Corpuscular Hemoglobin 28.9 pg (28.0-34.0); Mean Corpuscular Volume 86.1 fL (81-99); Mean Platelet Volume 10.1 fL (7.4-10.4); Monocytes # 0.3 10^3/uL (0.2-0.9); Monocytes % 6.3 %; Neutrophils # 3.59 10^3/uL (1.8-7.7); Neutrophils % 66.4 %; Nucleated Red Blood Cells % 0 %; Platelet Count 206 10^3/cmm (130-400); Red Cell Distribution Width 13.1 % (12.1-15.1); White Blood Count 5.4 10^3/uL (4.0-10.0)
[2020-06-21 10:19] LABS: Alanine Aminotransferase 18 U/L (0-33); Albumin Level 4.2 g/dL (3.5-5.2); Alkaline Phosphatase 88 IU/L (35-105); Anion Gap 13.3 (5-19); Aspartate Amino Transferase 17 U/L (0-32); Blood Urea Nitrogen 11 mg/dL (6-20); Calcium 9.8 mg/dL (8.5-10.5); Carbon Dioxide 27 mmol/L (22-29); Chloride 104 mmol/L (98-107); Globulin 3.1 g/dL (1.3-4.6); Glomerular Filtration Rate 103.8 mL/min (90-130); Glucose 94 mg/dL (65-115); Osmolality Calculated 289 mOsm/kg (285-295); Potassium 4.3 mmol/L (3.5-5.1); Sodium 140 mmol/L (136-145); Total Bilirubin 0.3 mg/dL (0.15-1.2); Total Protein 7.3 g/dL (6.6-8.7)
[2020-06-21 10:23] LABS: Acetaminophen < 5.0 ug/mL (10-30); Salicylate < 0.3 mg/dL (3-10)
[2020-06-21 10:23] LABS: Add Urine Microscopic? NO
[2020-06-21 10:40] LABS: Bilirubin Urine Neg (Negative); Blood Urine Neg (Negative); Glucose Urine UA Norm (Normal); Ketones Urine Negative (Negative); Nitrate Urine Negative (Negative); Protein Urine Neg (Negative); Specific Gravity, Urine 1.005 (1.005-1.030); Urine Appearance Clear (CLEAR); Urine Color Yellow (Yellow); pH Urine 5 (5-7)
[2020-06-21 10:41] LABS: Leukocyte Esterase Urine Negative (Negative); Urobilinogen Urine Norm (Negative)
[2020-06-21 10:45] VITALS: BP 102/66; PULSE 55; RESP 16; O2SAT 97
[2020-06-21 11:28] VITALS: BP 139/97; PULSE 60; RESP 12; O2SAT 98
[2020-06-21 11:52] VITALS: BP 132/83; PULSE 56; RESP 20; TEMP 36.6; O2SAT 100
[2020-06-21 14:00] VITALS: BP 140/88; PULSE 73; RESP 20; TEMP 36.9; O2SAT 96
[2020-06-21] MEDS: hyDROXYzine 25 mg Capsule 50 MG PO ×2 (17:46→20:02)
[2020-06-21 19:39] VITALS: BP 101/61; PULSE 59; RESP 17; TEMP 36.8; O2SAT 96
[2020-06-21] MEDS: acetaminophen 325 mg Tablet 650 MG PO (20:02)
[2020-06-21] MEDS: trazodone 50 mg Tablet PO (20:02)
[2020-06-22 06:00] VITALS: BP 130/91; PULSE 72; RESP 18; TEMP 36.9; O2SAT 95
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
[2020-06-22] MEDS: acetaminophen 325 mg Tablet 650 MG PO (09:35)
[2020-06-22] MEDS: sertraline 100 mg Tablet 200 MG PO (10:48)
[2020-06-22] MEDS: propranolol 20 mg Tablet 10 MG PO (10:49)
[2020-06-22] MEDS: BuSPIRONE 10 mg Tablet 20 MG PO (14:52)
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
[2020-06-22 15:34] VITALS: BP 130/91; PULSE 72; RESP 18; TEMP 36.9; O2SAT 95
== END 2020-06-22 16:15 | disposition home or self-care (01) | DRG 885 ==
LOC: ER 11:03 → NP 11:22
PROVIDERS: Admitting Provider Psychiatry & Neurology Psychiatry; Emergency Provider Family Medicine; PCP Nurse Practitioner Family; Visit Provider Psychiatry & Neurology Psychiatry
DX: F33.3 Major depressive disorder, recurrent, severe with psychotic symptoms (principal); Z68.42 Body mass index [BMI] 45.0-49.9, adult; F78 Other intellectual disabilities; G47.33 Obstructive sleep apnea (adult) (pediatric); F41.1 Generalized anxiety disorder; E66.01 Morbid (severe) obesity due to excess calories
CPT/HCPCS: 80053; 80307; 81003; 85025; 93005; 99285

== ENCOUNTER → 2020-06-29 07:23 | Outpatient (BNVA) | payer MEDICARE, MEDICAID, SELFPAY ==
[2020-05-10 11:28] VITALS: BP 132/71; BMI 45.1
== END ==
PROVIDERS: PCP Nurse Practitioner Family; Visit Provider Nurse Practitioner Psychiatric/Mental Health
DX: F33.3 Major depressive disorder, recurrent, severe with psychotic symptoms (principal); F41.1 Generalized anxiety disorder; G47.33 Obstructive sleep apnea (adult) (pediatric); F78 Other intellectual disabilities
CPT/HCPCS: 99214

== ENCOUNTER → 2020-07-07 07:17 | Outpatient (BNVA) | payer MEDICARE, MEDICAID, SELFPAY ==
[2020-05-10 11:28] VITALS: BP 132/71; BMI 45.1
== END ==
PROVIDERS: PCP Nurse Practitioner Family; Visit Provider Nurse Practitioner Psychiatric/Mental Health
DX: F33.3 Major depressive disorder, recurrent, severe with psychotic symptoms (principal); F43.12 Post-traumatic stress disorder, chronic; F41.1 Generalized anxiety disorder; F78 Other intellectual disabilities; G47.33 Obstructive sleep apnea (adult) (pediatric)
CPT/HCPCS: 99214

== ENCOUNTER → 2020-07-14 08:10 | Outpatient (BNVA) | payer MEDICARE, MEDICAID, SELFPAY ==
[2020-05-10 11:28] VITALS: BP 132/71; BMI 45.1
== END ==
PROVIDERS: PCP Nurse Practitioner Family; Visit Provider Nurse Practitioner Psychiatric/Mental Health
DX: F33.3 Major depressive disorder, recurrent, severe with psychotic symptoms (principal); F41.1 Generalized anxiety disorder; G47.33 Obstructive sleep apnea (adult) (pediatric); F78 Other intellectual disabilities
CPT/HCPCS: 99214

== ENCOUNTER → 2020-07-28 08:32 | Outpatient (BNVA) | payer MEDICARE, MEDICAID, SELFPAY ==
[2020-05-10 11:28] VITALS: BP 132/71; BMI 45.1
== END ==
PROVIDERS: PCP Nurse Practitioner Family; Visit Provider Nurse Practitioner Psychiatric/Mental Health
DX: F33.3 Major depressive disorder, recurrent, severe with psychotic symptoms (principal); F41.1 Generalized anxiety disorder; G47.33 Obstructive sleep apnea (adult) (pediatric); F78 Other intellectual disabilities
CPT/HCPCS: 99214

== ENCOUNTER → 2020-08-10 15:44 | Outpatient (BNVA) | payer MEDICARE, MEDICAID, SELFPAY ==
[2020-05-10 11:28] VITALS: BP 132/71; BMI 45.1
== END ==
PROVIDERS: PCP Nurse Practitioner Family; Visit Provider Nurse Practitioner Psychiatric/Mental Health
DX: F33.3 Major depressive disorder, recurrent, severe with psychotic symptoms (principal); F43.12 Post-traumatic stress disorder, chronic; F78 Other intellectual disabilities
CPT/HCPCS: 99214

== ENCOUNTER → 2020-08-18 07:36 | Outpatient (BNVA) | payer MEDICARE, MEDICAID, SELFPAY ==
[2020-05-10 11:28] VITALS: BP 132/71; BMI 45.1
== END ==
PROVIDERS: PCP Nurse Practitioner Family; Visit Provider Nurse Practitioner Psychiatric/Mental Health
DX: F33.3 Major depressive disorder, recurrent, severe with psychotic symptoms (principal); F78 Other intellectual disabilities; F43.12 Post-traumatic stress disorder, chronic
CPT/HCPCS: 99214

== ENCOUNTER → 2020-08-25 07:33 | Outpatient (BNVA) | payer MEDICARE, MEDICAID, SELFPAY ==
[2020-05-10 11:28] VITALS: BP 132/71; BMI 45.1
== END ==
PROVIDERS: PCP Nurse Practitioner Family; Visit Provider Nurse Practitioner Psychiatric/Mental Health
DX: F33.3 Major depressive disorder, recurrent, severe with psychotic symptoms (principal); F78 Other intellectual disabilities; F43.12 Post-traumatic stress disorder, chronic
CPT/HCPCS: 99214

== ENCOUNTER → 2020-09-08 13:33 | Outpatient (BNVA) | payer MEDICARE, MEDICAID, SELFPAY ==
[2020-08-30 09:35] VITALS: BP 132/71; BMI 45.1
== END ==
PROVIDERS: PCP Nurse Practitioner Family; Visit Provider Nurse Practitioner Psychiatric/Mental Health
DX: F33.3 Major depressive disorder, recurrent, severe with psychotic symptoms (principal); F78 Other intellectual disabilities; F43.12 Post-traumatic stress disorder, chronic
CPT/HCPCS: 99214

== ENCOUNTER → 2020-09-22 13:32 | Outpatient (BNVA) | payer MEDICARE, MEDICAID, SELFPAY ==
[2020-08-30 09:35] VITALS: BP 132/71; BMI 45.1
== END ==
PROVIDERS: PCP Nurse Practitioner Family; Visit Provider Nurse Practitioner Psychiatric/Mental Health
DX: F33.3 Major depressive disorder, recurrent, severe with psychotic symptoms (principal); F78 Other intellectual disabilities; F43.12 Post-traumatic stress disorder, chronic
CPT/HCPCS: 99214

== ENCOUNTER → 2020-10-06 07:15 | Outpatient (BNVA) | payer MEDICARE, MEDICAID, SELFPAY ==
[2020-08-30 09:35] VITALS: BP 132/71; BMI 45.1
== END ==
PROVIDERS: PCP Nurse Practitioner Family; Visit Provider Nurse Practitioner Psychiatric/Mental Health
DX: F33.3 Major depressive disorder, recurrent, severe with psychotic symptoms (principal); F78 Other intellectual disabilities; F43.12 Post-traumatic stress disorder, chronic
CPT/HCPCS: 99214

== ENCOUNTER → 2020-10-20 08:36 | Outpatient (BNVA) | payer MEDICARE, MEDICAID, SELFPAY ==
[2020-08-30 09:35] VITALS: BP 132/71; BMI 45.1
== END ==
PROVIDERS: PCP Nurse Practitioner Family; Visit Provider Nurse Practitioner Psychiatric/Mental Health
DX: F33.3 Major depressive disorder, recurrent, severe with psychotic symptoms (principal); F78 Other intellectual disabilities; F43.12 Post-traumatic stress disorder, chronic
CPT/HCPCS: 99214

== ENCOUNTER → 2020-11-03 13:32 | Outpatient (BNVA) | payer MEDICARE, MEDICAID, SELFPAY ==
[2020-08-30 09:35] VITALS: BP 132/71; BMI 45.1
== END ==
PROVIDERS: PCP Nurse Practitioner Family; Visit Provider Nurse Practitioner Psychiatric/Mental Health
DX: F33.3 Major depressive disorder, recurrent, severe with psychotic symptoms (principal); F78 Other intellectual disabilities; F43.12 Post-traumatic stress disorder, chronic
CPT/HCPCS: 99214

== ENCOUNTER → 2020-11-17 13:29 | Outpatient (BNVA) | payer MEDICARE, MEDICAID, SELFPAY ==
[2020-08-30 09:35] VITALS: BP 132/71; BMI 45.1
== END ==
PROVIDERS: PCP Nurse Practitioner Family; Visit Provider Nurse Practitioner Psychiatric/Mental Health
DX: F33.3 Major depressive disorder, recurrent, severe with psychotic symptoms (principal); F78 Other intellectual disabilities; F43.12 Post-traumatic stress disorder, chronic
CPT/HCPCS: 99214

== ENCOUNTER → 2020-12-01 13:36 | Outpatient (BNVA) | payer MEDICARE, MEDICAID, SELFPAY ==
[2020-08-30 09:35] VITALS: BP 132/71; BMI 45.1
== END ==
PROVIDERS: PCP Nurse Practitioner Family; Visit Provider Nurse Practitioner Psychiatric/Mental Health
DX: F33.3 Major depressive disorder, recurrent, severe with psychotic symptoms (principal); F78 Other intellectual disabilities; F43.12 Post-traumatic stress disorder, chronic
CPT/HCPCS: 99214

== ENCOUNTER → 2020-12-15 13:36 | Outpatient (BNVA) | payer MEDICARE, MEDICAID, SELFPAY ==
[2020-08-30 09:35] VITALS: BP 132/71; BMI 45.1
== END ==
PROVIDERS: PCP Nurse Practitioner Family; Visit Provider Nurse Practitioner Psychiatric/Mental Health
DX: F33.3 Major depressive disorder, recurrent, severe with psychotic symptoms (principal); F78 Other intellectual disabilities; F43.12 Post-traumatic stress disorder, chronic; Z79.899 Other long term (current) drug therapy
CPT/HCPCS: 99214

== ENCOUNTER → 2020-12-17 08:11 | Outpatient (BNVA) | payer MEDICARE, MEDICAID, SELFPAY ==
[2020-08-30 09:35] VITALS: BP 132/71; BMI 45.1
== END ==
PROVIDERS: PCP Nurse Practitioner Family; Visit Provider Nurse Practitioner Psychiatric/Mental Health
DX: Z79.899 Other long term (current) drug therapy (principal)
CPT/HCPCS: 80053; 80061; 83036

== ENCOUNTER → 2020-12-29 13:34 | Outpatient (BNVA) | payer MEDICARE, MEDICAID, SELFPAY ==
[2020-12-24 11:27] VITALS: BP 137/88; BMI 48.4
== END ==
PROVIDERS: PCP Nurse Practitioner Family; Visit Provider Nurse Practitioner Psychiatric/Mental Health
DX: F33.3 Major depressive disorder, recurrent, severe with psychotic symptoms (principal); F78 Other intellectual disabilities; F43.12 Post-traumatic stress disorder, chronic
CPT/HCPCS: 99214

== ENCOUNTER → 2021-01-12 13:31 | Outpatient (BNVA) | payer MEDICARE, MEDICAID, SELFPAY ==
[2021-01-06 13:32] VITALS: BP 137/88; BMI 48.4
== END ==
PROVIDERS: PCP Nurse Practitioner Family; Visit Provider Nurse Practitioner Psychiatric/Mental Health
DX: F33.3 Major depressive disorder, recurrent, severe with psychotic symptoms (principal); F78 Other intellectual disabilities; F43.12 Post-traumatic stress disorder, chronic
CPT/HCPCS: 99214

== ENCOUNTER → 2021-02-02 13:36 | Outpatient (BNVA) | payer MEDICARE, MEDICAID, SELFPAY ==
[2021-01-06 13:32] VITALS: BP 137/88; BMI 48.4
== END ==
PROVIDERS: PCP Nurse Practitioner Family; Visit Provider Nurse Practitioner Psychiatric/Mental Health
DX: F33.3 Major depressive disorder, recurrent, severe with psychotic symptoms (principal); F43.12 Post-traumatic stress disorder, chronic
CPT/HCPCS: 99214

== ENCOUNTER → 2021-02-16 13:40 | Outpatient (BNVA) | payer MEDICARE, MEDICAID, SELFPAY ==
[2021-01-06 13:32] VITALS: BP 137/88; BMI 48.4
== END ==
PROVIDERS: PCP Nurse Practitioner Family; Visit Provider Nurse Practitioner Psychiatric/Mental Health
DX: F33.3 Major depressive disorder, recurrent, severe with psychotic symptoms (principal); F43.12 Post-traumatic stress disorder, chronic
CPT/HCPCS: 99214

== ENCOUNTER → 2021-03-02 13:33 | Outpatient (BNVA) | payer MEDICARE, MEDICAID, SELFPAY ==
[2021-03-01 12:35] VITALS: BP 137/88; BMI 48.4
== END ==
PROVIDERS: PCP Nurse Practitioner Family; Visit Provider Nurse Practitioner Psychiatric/Mental Health
DX: F33.3 Major depressive disorder, recurrent, severe with psychotic symptoms (principal); F43.12 Post-traumatic stress disorder, chronic
CPT/HCPCS: 99214

== ENCOUNTER → 2021-03-30 14:05 | Outpatient (BNVA) | payer MEDICARE, MEDICAID, SELFPAY ==
[2021-03-01 12:35] VITALS: BP 137/88; BMI 48.4
== END ==
PROVIDERS: PCP Nurse Practitioner Family; Visit Provider Nurse Practitioner Psychiatric/Mental Health
DX: F33.3 Major depressive disorder, recurrent, severe with psychotic symptoms (principal); F43.12 Post-traumatic stress disorder, chronic
CPT/HCPCS: 99214

== ENCOUNTER → 2021-04-12 08:09 | Outpatient (BNVA) | payer MEDICARE, MEDICAID, SELFPAY ==
[2021-03-01 12:35] VITALS: BP 137/88; BMI 48.4
== END ==
PROVIDERS: PCP Nurse Practitioner Family; Visit Provider Nurse Practitioner Psychiatric/Mental Health
DX: F33.3 Major depressive disorder, recurrent, severe with psychotic symptoms (principal); F43.12 Post-traumatic stress disorder, chronic
CPT/HCPCS: 99214

== ENCOUNTER → 2021-04-18 13:04 | Outpatient (BNVA) | payer MEDICARE, MEDICAID, SELFPAY ==
[2021-04-15 11:33] VITALS: BP 137/88; BMI 48.4
== END ==
PROVIDERS: PCP Nurse Practitioner Family; Visit Provider Nurse Practitioner Family
DX: Z20.822 Contact with and (suspected) exposure to COVID-19 (principal)
CPT/HCPCS: 87635

== ENCOUNTER → 2021-04-27 13:30 | Outpatient (BNVA) | payer MEDICARE, MEDICAID, SELFPAY ==
[2021-04-15 11:33] VITALS: BP 137/88; BMI 48.4
== END ==
PROVIDERS: PCP Nurse Practitioner Family; Visit Provider Nurse Practitioner Psychiatric/Mental Health
DX: F33.3 Major depressive disorder, recurrent, severe with psychotic symptoms (principal); F41.1 Generalized anxiety disorder; F43.12 Post-traumatic stress disorder, chronic
CPT/HCPCS: 99214

== ENCOUNTER → 2021-05-11 07:56 | Outpatient (BNVA) | payer MEDICARE, MEDICAID, SELFPAY ==
[2021-04-15 11:33] VITALS: BP 137/88; BMI 48.4
== END ==
PROVIDERS: PCP Nurse Practitioner Family; Visit Provider Nurse Practitioner Psychiatric/Mental Health
DX: F33.3 Major depressive disorder, recurrent, severe with psychotic symptoms (principal); F41.1 Generalized anxiety disorder; F43.12 Post-traumatic stress disorder, chronic
CPT/HCPCS: 99214

== ENCOUNTER → 2021-05-23 07:33 | Outpatient (BNVA) | payer MEDICARE, MEDICAID, SELFPAY ==
[2021-04-15 11:33] VITALS: BP 137/88; BMI 48.4
== END ==
PROVIDERS: PCP Nurse Practitioner Family; Visit Provider Nurse Practitioner Psychiatric/Mental Health
DX: F33.3 Major depressive disorder, recurrent, severe with psychotic symptoms (principal); F41.1 Generalized anxiety disorder; F43.12 Post-traumatic stress disorder, chronic
CPT/HCPCS: 99214

== ENCOUNTER → 2021-06-08 13:00 | Outpatient (BNVA) | payer MEDICARE, MEDICAID, SELFPAY ==
[2021-04-15 11:33] VITALS: BP 137/88; BMI 48.4
== END ==
PROVIDERS: PCP Nurse Practitioner Family; Visit Provider Nurse Practitioner Psychiatric/Mental Health
DX: F33.3 Major depressive disorder, recurrent, severe with psychotic symptoms (principal); F41.1 Generalized anxiety disorder; F43.12 Post-traumatic stress disorder, chronic
CPT/HCPCS: 99214

== ENCOUNTER → 2021-06-22 13:02 | Outpatient (BNVA) | payer MEDICARE, MEDICAID, SELFPAY ==
[2021-04-15 11:33] VITALS: BP 137/88; BMI 48.4
== END ==
PROVIDERS: PCP Nurse Practitioner Family; Visit Provider Nurse Practitioner Psychiatric/Mental Health
DX: F33.3 Major depressive disorder, recurrent, severe with psychotic symptoms (principal); F41.1 Generalized anxiety disorder; F43.12 Post-traumatic stress disorder, chronic
CPT/HCPCS: 99214

== ENCOUNTER → 2021-06-30 15:33 | Outpatient (BNVA) | payer MEDICARE, MEDICAID, SELFPAY ==
[2021-04-15 11:33] VITALS: BP 137/88; BMI 48.4
== END ==
PROVIDERS: PCP Nurse Practitioner Family; Visit Provider Surgery
DX: Z20.822 Contact with and (suspected) exposure to COVID-19 (principal); Z11.52 Encounter for screening for COVID-19
CPT/HCPCS: 87635

== ENCOUNTER 2021-07-06 06:41 | Day surgery (SDC) | payer MEDICARE, MEDICAID, SELFPAY ==
[2021-04-15 11:33] VITALS: BP 137/88; BMI 48.4
[2021-07-01 13:04] VITALS: BMI 46.7
--- NOTE | 2021-07-06 06:54 | ANES.PREANE2 ---
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 CV/HEM None reported None reported Hepatic None reported GI Gastroesophageal Reflux Disease Metabolic Morbid Obesity and Thyroid Disease Musc/skel None reported Neuropsych None reported Anesthetic Plan ASA status: 2 Risk of > 500 ml blood loss (7ml/kg in children): No Medications/Allergies Home Medications Medication Instructions Recorded Confirmed Last Taken Type cetirizine 10 mg tablet (Zyrtec) 10 mg PO DAILY 05/05/19 07/01/21 06/21/20 08:30 History ibuprofen 200 mg capsule 600 mg PO DAILY PRN cap 05/05/19 07/01/21 06/20/20 History levothyroxine 100 mcg capsule 100 mcg PO DAILY 05/05/19 07/01/21 06/21/20 07:30 History triamcinolone acetonide 0.1 % 1 applic TOPICAL BID PRN 05/05/19 07/01/21 Unknown History topical cream (Triderm) multivit with 1 tab PO DAILY 09/05/19 07/01/21 06/20/20 14:00 History vcgbemti-ibxa-HM-lutein 8 mg iron-400 mcg-300 mcg tablet (Multivitamin Women 50 Plus) omega-3 fatty acids 1,000 mg 1,000 mg PO DAILY 02/24/20 07/01/21 06/20/20 14:00 History capsule (Fish Oil Concentrate) simvastatin 10 mg tablet 10 mg PO .QHS tab 08/10/20 07/01/21 Unknown History nystatin 100,000 unit/gram topical 1 applic TOPICAL DAILY 02/16/21 07/01/21 Unknown History cream buspirone 10 mg tablet 20 mg PO TID 30 Days #180 tab 03/30/21 07/01/21 Unknown Rx diazepam 5 mg tablet (Valium) 5 mg PO DIRECTED #60 tab 03/30/21 07/01/21 Unknown Rx benztropine 1 mg tablet 1 mg PO BID #180 tab 04/27/21 07/01/21 Unknown Rx sertraline 100 mg tablet (Zoloft) 200 mg PO .morning #180 tab 04/27/21 07/01/21 Unknown Rx terbinafine HCl 250 mg tablet 250 mg PO DAILY 05/20/21 07/01/21 Unknown History paliperidone 6 mg tablet,extended 6 mg PO .5 pm #30 tab 06/08/21 07/01/21 Unknown Rx release 24 hr (Invega) propranolol 10 mg tablet 10 mg PO .morning #90 tab 06/08/21 07/01/21 Unknown Rx lactulose 10 gram/15 mL oral 10 g (15 mL) PO BID 7 Days #210 ml 06/22/21 07/01/21 Unknown Rx solution omeprazole 20 mg capsule,delayed 20 mg PO DAILY 06/22/21 07/01/21 Unknown History release Allergies Allergy/AdvReac Type Severity Reaction Status Date / Time imipramine Allergy Unknown Unknown Verified 07/01/21 13:14 Penicillins Allergy Unknown Unknown Verified 07/01/21 13:14 ziprasidone [From Geodon] Allergy Unknown Unknown Verified 07/01/21 13:14 duloxetine [From Cymbalta] AdvReac Intermediate headaches Verified 07/01/21 13:14 PFS Anesthesia Medical History Chronic post-traumatic stress disorder Generalized anxiety disorder Hypercholesteremia Hyperthyroidism 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, recurrent episode with mood-congruent psychotic features Obstructive sleep apnea Family History Grandfather CAD (coronary artery disease) Grandmother CHF (congestive heart failure) Father Cancer Mother COPD (chronic obstructive pulmonary disease) CHF (congestive heart failure) Hypertension Afib Sister CAD (coronary artery disease) Social History Smoking and tobacco status: never smoked Second hand smoke exposure: No Smoking risk assessment/counseling performed?: No Alcohol intake: never Adopted: No Caregiver/support person: Yes ([facility] [place] [facility]) Lives independently: Yes Household members: none Housing: Apartment Marital status: Single Number of children: 2 Number of grandchildren: 2 Highest education level completed: Associate Degree: Occupational, Technical, Vocational Program Education level details: [employer] service: No Current occupational status: disabled Current occupational exposures/hazards: No Pets and animals: Yes Pets & animals: dog(s) History of recent travel: No Leisure activites: music, reading and other Leisure activities details: pray a lot Sexually active: No Current gender identity: Female Kandy/Judaism: Latter Day Special kandy needs: No Agree to transfusion: Yes Financial difficulty paying for basics: Somewhat Hard Female Reproductive History Para: 2 Data Anesthesia Cardiac Studies: No Data to Display
[2021-07-06 07:26] VITALS: BP 134/88; PULSE 88; RESP 18; TEMP 36.1; O2SAT 97
[2021-07-06] MEDS: sodium chloride 0.9% 1,000 ML 30 ML IV (07:35)
--- NOTE | 2021-07-06 08:23 | W.PM.OPSUD ---
Surgery/Procedure H&P Update DATE OF PROCEDURE: July 06, 2021 DATE H&P PERFORMED: 06/22/21 CHANGES TO PREVIOUS DOCUMENTATION: none PREOP DIAGNOSIS: History of colon polyps PRIMARY INDICATION FOR PROCEDURE: the same PLANNED PROCEDURE: Operation Date: 07/06/21 08:15 Proposed Procedures p Colonoscopy 44351/z86.010(Not Applicable) - Mt Hutchison MD
[2021-07-06 08:46] VITALS: BP 113/77; PULSE 60; RESP 17; TEMP 36.7; O2SAT 92
[2021-07-06 08:53] VITALS: BP 104/77; PULSE 76; RESP 18; O2SAT 95
--- NOTE | 2021-07-06 12:22 | ANE.PACU2 ---
Inpatient post-anesthesia follow up: Airway intact: Yes Vital signs: Temperature 98.0 F Pulse Rate 76 Respiratory Rate 18 Blood Pressure 104/77 Pulse Oximetry 95 Oxygen Delivery Me thod Room Air Oxygen Flow Rate Fraction of Inspir ed Oxygen Hydration adequate: Yes Nausea and vomiting: No Pain level: 1 Mental status: Baseline
== END 2021-07-06 09:06 | disposition home or self-care (01) ==
PROVIDERS: PCP Nurse Practitioner Family; Visit Provider Surgery
PROC: 0DJD8ZZ Inspection of Lower Intestinal Tract, Via Natural or Artificial Opening Endoscopic (ICD-10-PCS; CPT 45378; principal; 2021-07-06 08:15)
DX: Z12.11 Encounter for screening for malignant neoplasm of colon (principal); Z86.010 Personal history of colon polyps; E78.00 Pure hypercholesterolemia, unspecified; I10 Essential (primary) hypertension; G47.33 Obstructive sleep apnea (adult) (pediatric); Z82.49 Family history of ischemic heart disease and other diseases of the circulatory system; K21.9 Gastro-esophageal reflux disease without esophagitis; E66.01 Morbid (severe) obesity due to excess calories; Z68.42 Body mass index [BMI] 45.0-49.9, adult
CPT/HCPCS: 45378; J2704; J7030

== ENCOUNTER 2021-07-11 12:35 | Outpatient (CLI) | payer MEDICARE, MEDICAID, SELFPAY ==
[2021-04-15 11:33] VITALS: BP 137/88; BMI 48.4
--- NOTE | 2021-07-11 13:23 | MM_ITS ---
WS: [id number] BILATERAL SCREENING 3D TOMOSYNTHESIS DIGITAL MAMMOGRAM WITH CAD HISTORY: SCREENING COMPARISON: 05/28/2020, 03/28/2019 Bilateral CC and MLO views submitted. Computer aided detection analyzed. Breast composition: The breasts are heterogeneously dense, which may obscure small masses. No suspici ous masses, microcalcifications or architectural distortion. Stable asymmetries and partially obscure d nodules within each breast. Benign coarse calcification medial inferior LEFT breast. MM/[place] [id number] IMPRESSION: BI-RADS: 2-Benign FOLLOW UP: 1 Year Follow-up
== END 2021-07-11 12:36 | disposition home or self-care (01) ==
LOC: RADSHAW 13:14
PROVIDERS: PCP Nurse Practitioner Family; Visit Provider Nurse Practitioner Family
DX: Z12.31 Encounter for screening mammogram for malignant neoplasm of breast (principal)
CPT/HCPCS: 77063; 77067

== ENCOUNTER → 2021-07-20 13:35 | Outpatient (BNVA) | payer MEDICARE, MEDICAID, SELFPAY ==
[2021-04-15 11:33] VITALS: BP 137/88; BMI 48.4
== END ==
PROVIDERS: PCP Nurse Practitioner Family; Visit Provider Nurse Practitioner Psychiatric/Mental Health
DX: F33.3 Major depressive disorder, recurrent, severe with psychotic symptoms (principal); F41.1 Generalized anxiety disorder; F43.12 Post-traumatic stress disorder, chronic
CPT/HCPCS: 99214

== ENCOUNTER → 2021-08-24 13:33 | Outpatient (BNVA) | payer MEDICARE, MEDICAID, SELFPAY ==
[2021-08-10 12:54] VITALS: BP 137/88; BMI 48.4
== END ==
PROVIDERS: PCP Nurse Practitioner Family; Visit Provider Nurse Practitioner Psychiatric/Mental Health
DX: F33.3 Major depressive disorder, recurrent, severe with psychotic symptoms (principal); F41.1 Generalized anxiety disorder; F43.12 Post-traumatic stress disorder, chronic
CPT/HCPCS: 99214

== ENCOUNTER → 2021-09-07 13:34 | Outpatient (BNVA) | payer MEDICARE, MEDICAID, SELFPAY ==
[2021-08-31 10:22] VITALS: BP 137/88; BMI 48.4
== END ==
PROVIDERS: PCP Nurse Practitioner Family; Visit Provider Nurse Practitioner Psychiatric/Mental Health
DX: F33.3 Major depressive disorder, recurrent, severe with psychotic symptoms (principal); F41.1 Generalized anxiety disorder; F43.12 Post-traumatic stress disorder, chronic
CPT/HCPCS: 99214

== ENCOUNTER → 2021-09-21 13:34 | Outpatient (BNVA) | payer MEDICARE, MEDICAID, SELFPAY ==
[2021-09-08 08:22] VITALS: BP 137/88; BMI 48.4
== END ==
PROVIDERS: PCP Nurse Practitioner Family; Visit Provider Nurse Practitioner Psychiatric/Mental Health
DX: F33.3 Major depressive disorder, recurrent, severe with psychotic symptoms (principal); F41.1 Generalized anxiety disorder
CPT/HCPCS: 99214

== ENCOUNTER → 2021-10-05 13:05 | Outpatient (BNVA) | payer MEDICARE, MEDICAID, SELFPAY ==
[2021-09-08 08:22] VITALS: BP 137/88; BMI 48.4
== END ==
PROVIDERS: PCP Nurse Practitioner Family; Visit Provider Nurse Practitioner Psychiatric/Mental Health
DX: F33.3 Major depressive disorder, recurrent, severe with psychotic symptoms (principal); F41.1 Generalized anxiety disorder; F43.12 Post-traumatic stress disorder, chronic
CPT/HCPCS: 99214

== ENCOUNTER → 2021-10-19 13:28 | Outpatient (BNVA) | payer MEDICARE, MEDICAID, SELFPAY ==
[2021-10-06 12:12] VITALS: BP 137/88; BMI 48.4
== END ==
PROVIDERS: PCP Nurse Practitioner Family; Visit Provider Nurse Practitioner Psychiatric/Mental Health
DX: F33.3 Major depressive disorder, recurrent, severe with psychotic symptoms (principal); F41.1 Generalized anxiety disorder; F43.12 Post-traumatic stress disorder, chronic
CPT/HCPCS: 99214

== ENCOUNTER → 2021-11-28 12:16 | Outpatient (BNVA) | payer OTHER, SELFPAY ==
[2021-10-31 10:23] VITALS: BP 137/88; BMI 48.4
== END ==
PROVIDERS: PCP Nurse Practitioner Family; Visit Provider Nurse Practitioner Psychiatric/Mental Health
DX: F33.3 Major depressive disorder, recurrent, severe with psychotic symptoms (principal); F41.1 Generalized anxiety disorder; Z79.899 Other long term (current) drug therapy
CPT/HCPCS: 80061; 83036

== ENCOUNTER 2021-12-20 11:53 | Emergency (ER) | payer MEDICARE, MEDICAID, SELFPAY ==
[2021-11-30 11:37] VITALS: BP 112/60; BMI 46.5
[2021-12-20 11:56] VITALS: BP 122/86; PULSE 56; RESP 16; TEMP 37; O2SAT 96; BMI 46.7
--- NOTE | 2021-12-20 12:07 | ECG_ITS ---
[facility] Test Date: 2021-12-20 Pat Name: Emely Mendoza Department: Room: Gender: Female Label Folder: : 1965 Requested By: Alesha Avalos Order Number: [id number] Mikhail MD: Alvarez Devi M.D. Measurements Intervals [place] Rate: 65 P: -5 [place]: 116 QRS: 18 QRSD: 97 T: 19 QT: 404 QTc: 422 Interpretive Statements SINUS RHYTHM WITH SHORT [place] INTERVAL WITH OCCASIONAL VENTRICULAR PREMATURE COMPLEXES LOW QRS VOLTAGE IN PRECORDIAL LEADS [QRS DEFLECTION < 1.0 mV IN CHEST LEADS] POSSIBLE ANTERIOR MYOCARDIAL INFARCTION , PROBABLY OLD [30 ms Q WAVE IN V3/V4, OR R < 0.2 mV IN V4] Compared to ECG 06/21/2020 09:35:22 Ventricular premature complex(es) now present Short [place] interval now present Myocardial infarct finding now present Sinus bradycardia no longer present Electronically Signed On 12-20-2021 16:25:45 CDT by Alvarez Devi M.D. [id number]
[2021-12-20 13:07] LABS: Basophils % 0.2 %; Hemoglobin 12.4 g/dL (11.5-15.3); Lymphocytes # 1.7 10^3/uL (0.8-4.8); Mean Corpuscular HGB Conc 32.6 g/dL (30.0-36.0); Mean Corpuscular Hemoglobin 28.5 pg (28.0-34.0); Mean Corpuscular Volume 87.4 fl (81-99); Mean Platelet Volume 10.6 fL (7.4-10.4); Monocytes # 0.4 10^3/uL (0.2-0.9); Monocytes % 8.1 %; Neutrophils # 2.77 10^3/uL (1.8-7.7); Neutrophils % 56.5 %; Nucleated Red Blood Cells % 0 %; Platelet Count 194 10^3/cmm (130-400); Red Blood Count 4.35 10^6/uL (4.1-5.3); White Blood Count 4.9 10^3/uL (4.0-10.0)
[2021-12-20 13:32] VITALS: BP 148/95; PULSE 55; RESP 18; O2SAT 97
[2021-12-20 13:42] LABS: Anion Gap 14.9 (5-19); Blood Urea Nitrogen 8 mg/dL (6-20); Calcium 9.8 mg/dL (8.5-10.5); Carbon Dioxide 26 mmol/L (22-29); Chloride 103 mmol/L (98-107); Glomerular Filtration Rate 103.4 mL/min (90-130); Glucose 90 mg/dL (65-115); Magnesium 2.1 mg/dL (1.7-2.3); Osmolality Calculated 288 mOsm/kg (285-295); Potassium 3.9 mmol/L (3.5-5.1); Sodium 140 mmol/L (136-145); Thyroid Stimulating Hormone 1.56 uIU/mL (0.27-4.20)
[2021-12-20 14:26] LABS: Free T4 Free Thyroxine 1.16 ng/dL (0.82-1.77)
--- NOTE | 2021-12-20 14:34 | W.ED.ARRPALP ---
HPI - Arrhythmia/Palpitations General: Chief Complaint: Arrhythmia/Palpitations Stated Complaint: Low heart rate Time Seen by Provider: 12/20/21 13:54 Source: patient Mode of arrival: ambulatory Limitations: no limitations History of Present Illness: 56-year-old female presents to the emergency room with complaint of slow heart rate. Her home health nurse evidently came out to her home and reported heart rates in the 30s and 40s she was otherwise feeling fine she presents emergency room because of this finding. Since arriving her heart rate has been normal she denies any chest pain or palpitations. She has no history of any arrhythmias she is not on any negative inotropes on the medication list we have available to us. She not had any syncopal episodes or chest pain. Onset (ago): unknown Duration: intermittent and now resolved Associated symptoms: Deny anxiety, cough, diaphoresis, muscle cramps, nausea, paresthesias, pre-syncope, sense of impending doom, short of breath, syncope or vomiting Review of Systems Const: Denies: diaphoresis ENMT: Denies: throat pain, ear or mastoid pain, nasal discharge or nasal congestion Card: Denies: syncope or pre-syncope Resp: Denies: dyspnea, productive cough or non-productive cough GI: Denies: abdominal pain, nausea or vomiting : Denies: flank pain, difficulty voiding, dysuria, urinary frequency or urinary urgency Musc: Denies: neck pain, back pain or muscle cramps Skin/Breast: Denies: rash or pruritus Psych: Denies: anxiety PFSH ED PFSH: Medical History Chronic post-traumatic stress disorder Generalized anxiety disorder Hypercholesteremia Hyperthyroidism 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, recurrent episode with mood-congruent psychotic features Obstructive sleep apnea Family History Grandfather CAD (coronary artery disease) Grandmother CHF (congestive heart failure) Father Cancer Mother COPD (chronic obstructive pulmonary disease) CHF (congestive heart failure) Hypertension Afib Sister CAD (coronary artery disease) Social History Smoking and tobacco status: never smoked Second hand smoke exposure: No Smoking risk assessment/counseling performed?: No Alcohol intake: never Adopted: No Caregiver/support person: Yes ([facility]) Lives independently: Yes Household members: none Housing: Apartment Marital status: Single Number of children: 2 Number of grandchildren: 2 Highest education level completed: Associate Degree: Occupational, Technical, Vocational Program Education level details: SOHEILA service: No Current occupational status: disabled Current occupational exposures/hazards: No Pets and animals: Yes Pets & animals: dog(s) History of recent travel: No Leisure activites: music, reading and other Leisure activities details: pray a lot Sexually active: No Current gender identity: Female Kandy/Jehovah'S Witness: Orthodoxy Special kandy needs: No Agree to transfusion: Yes Financial difficulty paying for basics: Somewhat Hard Female Reproductive History: Para: 2 Physical Exam Const: GENERAL APPEARANCE: cooperative and comfortable ORIENTATION/CONSCIOUSNESS: Yes awake, Yes oriented to person, Yes oriented to place and Yes oriented to time HENMT: COMMON NORMALS: normocephalic, atraumatic, hearing grossly normal bilaterally, external ears normal, EAC's normal, TM's normal bilaterally, Normal nasal mucous membranes and turbinates present, moist oral mucous membranes and oropharynx normal HEAD & SCALP: normocephalic and atraumatic NOSE: Normal nasal mucous membranes and turbinates present EXTERNAL EAR: Yes external ears normal EXTERNAL AUDITORY CANAL: EAC's normal TYMPANIC MEMBRANE: TM's normal bilaterally Eye: COMMON NORMALS: Equal, round and reactive pupils present, EOMs intact bilaterally, conjunctivae normal and no scleral icterus CONJUNCTIVA: Yes conjunctivae normal PUPIL: Yes Equal, round and reactive pupils present Neck/C-Spine: COMMON NORMALS: full ROM, no lymphadenopathy, supple and no JVD Lymph: LYMPHATIC: no lymphadenopathy noted and no lymphedema noted Resp: COMMON NORMALS: normal respiratory effort, No retractions, No use of accessory muscles and clear to auscultation bilaterally AUSCULTATION: clear to auscultation bilaterally Cardio: COMMON NORMALS: no JVD, regular rate, regular rhythm and No murmurs present (Cardio) RATE: regular rate RHYTHM: regular rhythm GI: COMMON NORMALS: Soft to palpation and No hepatosplenomegaly present AUSCULTATION: Yes normoactive bowel sounds PALPATION: Yes Soft to palpation, No Tenderness to palpation present (GI), No Guarding due to palpation present (GI) and Yes No hepatosplenomegaly present Extremity: COMMON NORMALS: normal to inspection, capillary refill normal, no clubbing, cyanosis or edema, no calf tenderness and no pedal edema Neuro: SENSORIUM/ORIENTATION: Yes oriented to person, Yes oriented to place and Yes oriented to time Skin: COMMON NORMALS: no rashes or lesions noted GENERAL SKIN EXAM: no rashes or lesions noted Course Vital Signs: Vital signs: Vital Signs Temperature 98.6 F 12/20/21 11:56 Pulse Rate 55 L 12/20/21 15:23 Respiratory Rate 20 H 12/20/21 15:23 Blood Pressure 140/89 12/20/21 15:23 Pulse Oximetry 96 12/20/21 15:23 Oxygen Delivery Me thod 12/20/21 11:56 MDM - Arrhythmia/Palpitations Medical Decision Making Heart rate in mid 50s the patient is essentially asymptomatic blood pressure is good labs and chart reviewed no changes at this time follow-up with primary care doctor. organizational development manager will make arrangements for a 48-hour Holter monitor Medical Records I reviewed the patient's medical records. Lab Data I reviewed the patient's lab results. : 12/20/21 13:00 12/20/21 13:00 Laboratory Results WBC 4.9 10^3/uL (4.0-10.0) 12/20/21 13:00 RBC 4.35 10^6/uL (4.1-5.3) 12/20/21 13:00 Hgb 12.4 g/dL (11.5-15.3) 12/20/21 13:00 Hct 38.0 % (37.0-47.0) 12/20/21 13:00 MCV 87.4 fl (81-99) 12/20/21 13:00 MCH 28.5 pg (28.0-34.0) 12/20/21 13:00 MCHC 32.6 g/dL (30.0-36.0) 12/20/21 13:00 RDW 13.0 % (12.1-15.1) 12/20/21 13:00 Plt Count 194 10^3/cmm (130-400) 12/20/21 13:00 MPV 10.6 fL (7.4-10.4) H 12/20/21 13:00 Neut % (Auto) 56.5 % 12/20/21 13:00 Lymph % (Auto) 35.0 % 12/20/21 13:00 [place] % (Auto) 8.1 % 12/20/21 13:00 Eos % (Auto) 0.0 % 12/20/21 13:00 Baso % (Auto) 0.2 % 12/20/21 13:00 Neut # (Auto) 2.77 10^3/uL (1.8-7.7) 12/20/21 13:00 Lymph # (Auto) 1.7 10^3/uL (0.8-4.8) 12/20/21 13:00 [place] # (Auto) 0.4 10^3/uL (0.2-0.9) 12/20/21 13:00 Eos # (Auto) 0.0 10^3/uL (0.0-0.8) 12/20/21 13:00 Baso # (Auto) 0.0 10^3/uL (0.0-0.1) 12/20/21 13:00 Nucleated RBC % (auto) 0 % 12/20/21 13:00 Nucleated RBCs # 0.0 /100WBC 12/20/21 13:00 Sodium 140 mmol/L (136-145) 12/20/21 13:00 Potassium 3.9 mmol/L (3.5-5.1) 12/20/21 13:00 Chloride 103 mmol/L (98-107) 12/20/21 13:00 Carbon Dioxide 26 mmol/L (22-29) 12/20/21 13:00 Anion Gap 14.9 (5-19) 12/20/21 13:00 BUN 8 mg/dL (6-20) 12/20/21 13:00 Creatinine 0.6 mg/dL (0.5-0.9) 12/20/21 13:00 GFR Calculation 103.4 mL/min (90-130) 12/20/21 13:00 Glucose 90 mg/dL (65-115) 12/20/21 13:00 Calculated Osmolality 288 mOsm/kg (285-295) 12/20/21 13:00 Calcium 9.8 mg/dL (8.5-10.5) 12/20/21 13:00 Magnesium 2.1 mg/dL (1.7-2.3) 12/20/21 13:00 TSH 1.56 uIU/mL (0.27-4.20) 12/20/21 13:00 Free T4 1.16 ng/dL (0.82-1.77) 12/20/21 13:00 Discharge Plan Discharge Patient Disposition: Home Clinical Impression: Bradycardia Condition: Stable Prescriptions: No Action levothyroxine 100 mcg capsule 100 mcg PO DAILY ibuprofen 200 mg capsule 600 mg PO DAILY PRN (Reason: Pain) cetirizine [Zyrtec] 10 mg tablet 10 mg PO DAILY triamcinolone acetonide [Triderm] 0.1 % cream 1 applic TOPICAL BID PRN (Reason: Itching) Multivitamin Women 50 Plus 8 mg iron-400 mcg-300 mcg tablet 1 tab PO DAILY simvastatin 10 mg tablet 10 mg PO BEDTIME nystatin 100,000 unit/gram cream 1 applic topical DAILY terbinafine HCl 250 mg tablet 250 mg PO DAILY omeprazole 20 mg capsule,delayed release(DR/EC) 20 mg PO DAILY benztropine 1 mg tablet 1 mg PO BID Qty: 180 2RF lactulose 10 gram/15 mL solution 10 g PO BID 7 Days Qty: 210 0RF buspirone 10 mg tablet 20 mg PO TID 30 Days Qty: 180 4RF diazepam [Valium] 5 mg tablet 2.5 mg PO BID Qty: 30 3RF Rx Instructions: Take half tablet at 8 am and 3 pm paliperidone [Invega] 6 mg tablet extended release 24hr 6 mg PO .5 pm Qty: 90 2RF Rx Instructions: Take one tablet at 5 pm sertraline [Zoloft] 100 mg tablet 200 mg PO .morning Qty: 180 2RF Rx Instructions: Take two tablets in morning Fish Oil 300-1,000 mg Capsule,Delayed Release(Dr/Ec) 1 cap PO DAILY Invega 6 mg tablet extended release 24hr 6 mg PO QPM Discharge Orders: Discharge ED (Routine); Ordered 12/20/21 Ordered By: Brandyn Shelby Referrals: Lida Tijerina, WEB CONTENT SPECIALIST [Primary Care Provider] - Discharge Diet: Usual diet Discharge Activity: Resume usual activity Activity Restrictions/Additional Instructions: Case management made arrangements for a 48-hour Holter monitor. Continue with medications as previously prescribed. Coding Level of Care Code ED International Account Executive for Chg Fwd Exam Comprehensive
--- NOTE | 2021-12-20 14:34 | PC.NURSE ---
PT PLACED ON CONTINUOUS NIBP AND CM.
[2021-12-20 15:23] VITALS: BP 140/89; PULSE 55; RESP 20; O2SAT 96
--- NOTE | 2021-12-21 11:26 | DCPLANNER ---
Addendum entered by Patti Razo 01/05/22 15:02: Patient had a follow up appointment scheduled with heart care - patient did attend appointment Addendum entered by Patti Razo 12/22/21 14:53: Patient has a follow up appointment scheduled for Sunday, December 27, 2021 at 11:00 for a holter monitor. Clinic will call patient with appointment information. Original Note: manager salt had message to schedule an outpatient 48 hour holter monitor. manager salt faxed a signed order to heart care, who will call patient with appointment information.
== END 2021-12-20 15:25 | disposition home or self-care (01) ==
PROVIDERS: Emergency Medicine; Emergency Provider Family Medicine; PCP Nurse Practitioner Family
DX: R00.1 Bradycardia, unspecified (principal)
CPT/HCPCS: 80048; 83735; 84439; 84443; 85025; 93005; 99284

== ENCOUNTER → 2022-02-20 08:31 | Outpatient (BNVA) | payer MEDICARE, MEDICAID, SELFPAY ==
[2021-11-30 11:37] VITALS: BP 112/60; BMI 46.5
== END ==
PROVIDERS: PCP Family Medicine; Visit Provider Podiatrist Foot & Ankle Surgery
DX: L60.3 Nail dystrophy (principal)
CPT/HCPCS: 99203

== ENCOUNTER → 2022-03-24 07:39 | Outpatient (BNVA) | payer MEDICARE, MEDICAID, SELFPAY ==
[2022-03-27 10:14] VITALS: BP 112/60; BMI 46.5
== END ==
PROVIDERS: PCP Family Medicine; Visit Provider Podiatrist Foot & Ankle Surgery
DX: L60.8 Other nail disorders (principal); L60.3 Nail dystrophy
CPT/HCPCS: 99213

== ENCOUNTER → 2022-05-04 08:02 | Outpatient (BNVA) | payer OTHER, MEDICAID, SELFPAY ==
[2022-04-03 09:56] VITALS: BP 112/60; BMI 46.5
== END ==
PROVIDERS: PCP Family Medicine; Visit Provider Podiatrist Foot & Ankle Surgery
DX: L60.0 Ingrowing nail (principal); L60.8 Other nail disorders; L60.3 Nail dystrophy
CPT/HCPCS: 11750

== ENCOUNTER 2022-07-14 11:09 | Outpatient (CLI) | payer MEDICARE, MEDICAID, SELFPAY ==
[2021-11-30 11:37] VITALS: BP 112/60; BMI 46.5
[2022-07-03 09:34] VITALS: BP 112/60; BMI 46.5
--- NOTE | 2022-07-14 11:31 | MM_ITS ---
WS: [id number] BILATERAL SCREENING DIGITAL TOMOSYNTHESIS MAMMOGRAM WITH CAD HISTORY: SCREEN COMPARISON: None available. Bilateral CC and MLO views with tomosynthesis and synthetic mammography submitted. Limited lateral po sitioning. Computer aided detection analyzed. Breast composition: The breasts are extremely dense, which lowers the sensitivity of mammography. No suspicious masses, microcalcifications or architectural distortion. Benign calcifications. MM/[place] [id number] IMPRESSION: BI-RADS: 2-Benign FOLLOW UP: 1 Year Follow-up
== END 2022-07-14 11:10 | disposition home or self-care (01) ==
LOC: RAD 11:13
PROVIDERS: PCP Family Medicine; Visit Provider Family Medicine
DX: Z12.31 Encounter for screening mammogram for malignant neoplasm of breast (principal)
CPT/HCPCS: 77063; 77067

== ENCOUNTER → 2022-10-25 11:48 | Outpatient (BNVA) | payer MEDICARE, OTHER, SELFPAY ==
[2022-10-19 07:36] VITALS: BP 112/60; BMI 46.5
== END ==
PROVIDERS: PCP Family Medicine; Visit Provider Nurse Practitioner Psychiatric/Mental Health
DX: F33.3 Major depressive disorder, recurrent, severe with psychotic symptoms (principal); F41.1 Generalized anxiety disorder; F43.12 Post-traumatic stress disorder, chronic; Z79.899 Other long term (current) drug therapy
CPT/HCPCS: 80053; 80061; 83036

== ENCOUNTER → 2023-03-07 09:43 | Outpatient (BNVA) | payer MEDICARE, MEDICAID, SELFPAY ==
[2023-03-05 09:44] VITALS: BP 138/74; BMI 47.4
== END ==
PROVIDERS: PCP Family Medicine; Visit Provider Internal Medicine Cardiovascular Disease
DX: R07.89 Other chest pain (principal); R00.1 Bradycardia, unspecified; R03.0 Elevated blood-pressure reading, without diagnosis of hypertension; E78.00 Pure hypercholesterolemia, unspecified; G47.33 Obstructive sleep apnea (adult) (pediatric); F33.3 Major depressive disorder, recurrent, severe with psychotic symptoms; I49.8 Other specified cardiac arrhythmias
CPT/HCPCS: 99214

== ENCOUNTER 2023-03-30 11:22 | Outpatient (CLI) | payer MEDICARE, MEDICAID, SELFPAY ==
[2023-03-05 09:44] VITALS: BP 138/74; BMI 47.4
[2023-03-30 11:29] VITALS: BP 161/83; PULSE 74; BMI 48.4
--- NOTE | 2023-03-30 11:30 | ECG_ITS ---
[facility] Test Date: 2023-03-30 Pat Name: Emely Limajeannie Department: Room: Gender: Female Chemical Analyst: Daryaponcho WillJess : 1965 Requested By: Demetrius Lara Order Number: [id number] Mikhail MD: Demetrius Lara M.D. Interpretive Statements NAME OF STUDY: TREADMILL STRESS TEST INDICATION: Neck pain PROCEDURE: At the baseline, the patient's blood pressure was 141/60 with a heart rate of 78. The baseline electrocardiogram showed normal sinus rhythm with nonspecific T wave changes.. The patient exercised for 3 minutes on a standard German protocol. Patient attained a maximum heart rate of 153 beats per minute(93% of the maximum predicted heart rate) with a blood pressure at the peak exercise of 202/81 mm Hg. The EKG at the peak exercise revealed nonspecific ST-T changes. Patient did not have any chest pain or any significant cardiac arrhythmias with the exercise During the recovery phase, there were no new changes. Blood pressure at the end of the recovery phase was 161/83 mm Hg with a heart rate of 76 per minute. CONCLUSION: 1. Nonspecific EKG response to treadmill exercise 2. No exercise-induced chest pain or cardiac arrhythmia 3. Impaired exercise tolerance, attained a maximum of 4.6 METs Electronically Signed On 04-06-2023 11:00:28 BLOW PIT HELPER by Demetrius Lara M.D. [email or web address]
== END 2023-03-30 11:23 | disposition home or self-care (01) ==
PROVIDERS: PCP Family Medicine; Visit Provider Internal Medicine Cardiovascular Disease
DX: R07.9 Chest pain, unspecified (principal); M54.2 Cervicalgia
CPT/HCPCS: 93017

== ENCOUNTER 2023-06-14 07:52 | Outpatient (RCR) | payer MEDICARE, MEDICAID, SELFPAY ==
[2023-05-31 09:30] VITALS: BP 138/74; BMI 47.4
== END 2023-06-21 23:59 | disposition home or self-care (01) ==
LOC: SPT 07:52
PROVIDERS: PCP Family Medicine; Visit Provider Family Medicine
DX: M79.605 Pain in left leg (principal)
CPT/HCPCS: 97110; 97161

== ENCOUNTER 2023-06-22 06:00 | Outpatient (RCR) | payer MEDICARE, MEDICAID, SELFPAY ==
[2023-06-20 14:13] VITALS: BP 138/74; BMI 47.4
== END 2023-07-22 23:59 | disposition home or self-care (01) ==
LOC: SPT 06:00
PROVIDERS: PCP Family Medicine; Visit Provider Family Medicine
DX: M79.605 Pain in left leg (principal)
CPT/HCPCS: 97110

== ENCOUNTER 2023-07-17 08:28 | Outpatient (CLI) | payer MEDICARE, MEDICAID, SELFPAY ==
[2023-06-27 13:37] VITALS: BP 138/74; BMI 47.4
--- NOTE | 2023-07-17 08:54 | MM_ITS ---
WS: [id number] VIEWS: MLO and CC views both breasts. 3D digital tomosynthesis is also included in this exam. Comparison made with prior exam of 03/12/2012, 06/03/2015, 01/18/2017, 02/15/2018, 03/28/2019, 05/28/2020, 07/11/2021, 07/14/2022.. Findings: There was no sign of mass, architectural distortion or suspicious calcification in either breast. The breasts are heterogeneously dense which may obscure small masses Impression: MM/[place] [id number] BI-RADS: 2-Benign finding. FOLLOW-UP: 1 Year Follow-up This mammogram was also analyzed by the Computer Aided Detection System R2 Imag e Foil Cutter.
== END 2023-07-17 08:29 | disposition home or self-care (01) ==
LOC: RAD 08:30
PROVIDERS: PCP Family Medicine; Visit Provider Family Medicine
DX: Z12.31 Encounter for screening mammogram for malignant neoplasm of breast (principal)
CPT/HCPCS: 77063; 77067

== ENCOUNTER 2023-07-23 06:00 | Outpatient (RCR) | payer MEDICARE, MEDICAID, SELFPAY ==
[2023-06-27 13:37] VITALS: BP 138/74; BMI 47.4
== END 2023-08-02 23:59 | disposition home or self-care (01) ==
LOC: SPT 06:00
PROVIDERS: PCP Family Medicine; Visit Provider Family Medicine
DX: M62.81 Muscle weakness (generalized) (principal)
CPT/HCPCS: 97110

== ENCOUNTER → 2023-08-09 10:32 | Outpatient (BNVA) | payer MEDICARE, MEDICAID, OTHER, SELFPAY ==
[2023-06-27 13:37] VITALS: BP 138/74; BMI 47.4
== END ==
PROVIDERS: PCP Family Medicine; Visit Provider Dermatology
DX: L57.0 Actinic keratosis (principal); L30.4 Erythema intertrigo; L71.8 Other rosacea; L82.1 Other seborrheic keratosis; D23.5 Other benign neoplasm of skin of trunk; L24.9 Irritant contact dermatitis, unspecified cause; L70.8 Other acne
CPT/HCPCS: 17000; 99204

== ENCOUNTER → 2023-09-12 09:37 | Outpatient (BNVA) | payer MEDICARE, MEDICAID, SELFPAY ==
[2023-09-05 09:57] VITALS: BP 138/74; BMI 47.4
== END ==
PROVIDERS: PCP Family Medicine; Visit Provider Internal Medicine Cardiovascular Disease
DX: R06.02 Shortness of breath (principal); I49.8 Other specified cardiac arrhythmias; E78.00 Pure hypercholesterolemia, unspecified; R03.0 Elevated blood-pressure reading, without diagnosis of hypertension; G47.39 Other sleep apnea
CPT/HCPCS: 99214

== ENCOUNTER → 2023-10-16 14:05 | Outpatient (BNVA) | payer MEDICAID, MEDICARE, SELFPAY ==
[2023-09-05 09:57] VITALS: BP 138/74; BMI 47.4
== END ==
PROVIDERS: PCP Family Medicine; Visit Provider Nurse Practitioner Family
DX: L21.8 Other seborrheic dermatitis (principal); L57.0 Actinic keratosis; L82.1 Other seborrheic keratosis; D18.01 Hemangioma of skin and subcutaneous tissue
CPT/HCPCS: 17000; 99214

== ENCOUNTER → 2023-10-29 09:05 | Outpatient (BNVA) | payer OTHER, SELFPAY ==
[2023-09-05 09:57] VITALS: BP 138/74; BMI 47.4
== END ==
PROVIDERS: PCP Family Medicine; Visit Provider Nurse Practitioner Psychiatric/Mental Health
DX: Z79.899 Other long term (current) drug therapy (principal)
CPT/HCPCS: 80053; 80061; 83036

== ENCOUNTER → 2023-11-06 08:48 | Outpatient (CLI) | payer MEDICARE, MEDICAID, SELFPAY ==
[2023-09-05 09:57] VITALS: BP 138/74; BMI 47.4
[2023-11-05 10:27] VITALS: BMI 48.8
--- NOTE | 2023-11-06 09:45 | USCV_ITS ---
Emely Mendoza Age: 58 Gender: F : 1965 Exam Date: 11/06/2023 08:55 Ordering Phys: Demetrius Lara MD ([email or web address]) Technologist: TAWANNA Exam Location: [facility] [place] Indication: SHORTNESS OF BREATH BP: 128 / 74 HR: 63 Rhythm: Sinus Technical Quality: Suboptimal MEASUREMENTS (Male / Female) Normal Values 2D ECHO LV Diastolic Diameter PLAX 5.3 cm 4.2 - 5.9 / 3.9 - 5.3 cm IVS Diastolic Thickness 1.1 cm 0.6 - 1.0 / 0.6 - 0.9 cm IVS Systolic Thickness 2.0 cm LVPW Diastolic Thickness 2.0 cm 0.6 - 1.0 / 0.6 - 0.9 cm LVPW Systolic Thickness 2.9 cm LVOT Diameter 2.1 cm LV Ejection Fraction 2D Teich 62.3 % LV Ejection Fraction MOD 4C 60.4 % LV Ejection Fraction MOD 2C 60.8 % LV Ejection Fraction 2C AL 60.9 % LA Diameter 3.3 cm RA Systolic Volume 4C AL 34.8 ml RA Systolic Volume 4C MOD 32.9 ml LA Sys Volume AL 49.9 cm cubed LA Sys Volume Index AL 18.9 cm cubed/m squared Aorta at Sinotubular Diameter 2.4 cm IVC Diameter 1.9 cm M-MODE LA Ao Ratio MM 1.0 AV Cusp Separation MM 1.7 cm DOPPLER AV Peak Velocity 157.0 cm/s LVOT Peak Velocity 136.0 cm/s AV Area Cont Eq vti 3.2 cm squared AV Area Cont Eq pk 2.9 cm squared MV Peak Velocity 124.0 cm/s MV Area PHT 3.2 cm squared Mitral E to A Ratio 1.3 TR Peak Velocity 155.0 cm/s TR Peak Gradient 9.6 mmHg TR Mean Velocity 128.0 cm/s TR Mean Gradient 6.9 mmHg TR Velocity Time Integral 47.3 cm TV Peak E Velocity 61.0 cm/s Right Atrial Pressure 3.0 mmHg Pulmonary Artery Systolic Pressu 12.6 mmHg PV Peak Velocity 90.0 cm/s RV Ejection Time 0.3 s FINDINGS Left Ventricle Possibly normal LV size and ejection fraction of 60%. No gross wall motion abnormalities. Right Ventricle The right ventricle is normal in size and function. Right Atrium possibly normal right atrial size. Left Atrium possibly niormal LA size Mitral Valve morphology could not be delieneated well Aortic Valve Aortic valve not well visualized. Tricuspid Valve Trace tricuspid valve regurgitation. Pulmonic Valve Pulmonic valve not well visualized. Pericardium No pericardial effusion. Aorta Normal aortic annulus size. IVC The inferior vena cava appears normal. CONCLUSIONS Possibly normal LV size and ejection fraction of 60%. No gross wall motion abnormalities. Trace tricuspid valve regurgitation. There is no pericardial effusion. Valve morphology could not be visualized well Technically difficult study because of the poor ultrasonic window. Dr Demetrius Lara MD FACC (Electronically Signed) Final Date: 09 November 2023 01:42 S
== END | disposition home or self-care (01) ==
LOC: RAD 08:48
PROVIDERS: PCP Family Medicine; Visit Provider Internal Medicine Cardiovascular Disease
DX: R06.09 Other forms of dyspnea (principal); I07.1 Rheumatic tricuspid insufficiency
CPT/HCPCS: 93306

== ENCOUNTER → 2023-11-13 07:34 | Outpatient (BNVA) | payer MEDICARE, MEDICAID, SELFPAY ==
[2023-11-05 10:27] VITALS: BMI 48.8
== END ==
PROVIDERS: PCP Family Medicine; Visit Provider Podiatrist Foot & Ankle Surgery
DX: M79.672 Pain in left foot (principal); M72.2 Plantar fascial fibromatosis
CPT/HCPCS: 73630; 99213

== ENCOUNTER → 2023-12-25 10:10 | Outpatient (BNVA) | payer MEDICARE, OTHER, SELFPAY ==
[2023-11-19 13:07] VITALS: BMI 48.8
== END ==
PROVIDERS: PCP Family Medicine; Visit Provider Podiatrist Foot & Ankle Surgery
DX: M72.2 Plantar fascial fibromatosis (principal); M79.672 Pain in left foot
CPT/HCPCS: 20550; J1100; J3301; J3490

== ENCOUNTER → 2024-02-26 13:15 | Outpatient (BNVA) | payer MEDICARE, MEDICAID, SELFPAY ==
[2024-01-21 08:15] VITALS: BMI 48.8
== END ==
PROVIDERS: PCP Family Medicine; Visit Provider Podiatrist Foot & Ankle Surgery
DX: M79.672 Pain in left foot (principal); M72.2 Plantar fascial fibromatosis
CPT/HCPCS: 99213

== ENCOUNTER 2024-03-04 18:08 | Emergency (ER) | payer MEDICARE, MEDICAID, SELFPAY ==
[2024-01-21 08:15] VITALS: BMI 48.8
[2024-03-04 18:11] VITALS: BP 153/106; PULSE 75; RESP 18; TEMP 36.8; O2SAT 97; BMI 48.5
[2024-03-04 18:15] VITALS: BP 153/106; PULSE 75; RESP 18; TEMP 36.8; O2SAT 97
--- NOTE | 2024-03-04 18:17 | XRR_ITS ---
PROCEDURE INFORMATION: Exam: XR Chest Exam date and time: 03/04/2024 6:22 PM Age: 58 years old Clinical indication: Other: Possible aspiration; Patient HX: Left lung bx TECHNIQUE: Imaging protocol: Radiologic exam of the chest. Views: 1 view. COMPARISON: CR XR chest 2V* [id number] 12/11/2018 1:22 PM FINDINGS: Lungs: Unremarkable. No consolidation. Pleural spaces: Unremarkable. No pleural effusion. No pneumothorax. Heart/Mediastinum: Unremarkable. No cardiomegaly. Bones/joints: Unremarkable. XR/XR chest 1V portable [id number] IMPRESSION: No acute findings.
--- NOTE | 2024-03-04 18:22 | ED_ITS ---
HPI - General Adult General: Chief complaint: Airway/Esophagus Foreign Body Stated complaint: Airway Obstru/ Pills Time Seen by Provider: 03/04/24 18:11 History of Present Illness: 58-year-old female with a history of hyp ertension who presents the emergency room with concern that she may have aspirated her carvedilol tonight. She says she feels like its in the flap . She is not short of breath at this time. No increased work of breathing. Oxygen saturations are normal. She said it just made her extremely anxious and she was also worried that she might not get her medication. No chest pain. No altered mental status. No nausea or vomiting. Related Data Home Medications Medication Instructions Recorded Confirmed cetirizine 10 mg tablet (Zyrtec) 10 mg PO DAILY 05/05/19 02/26/24 levothyroxine 100 mcg capsule 100 mcg PO DAILY 05/05/19 02/26/24 jzemheuc-zlit-ctjf 8 mg-folic 400 1 tab PO DAILY 09/05/19 02/26/24 mcg-K 50 mcg-lutein 300 mcg tablet (Multivitamin Women 50 Plus) simvastatin 10 mg tablet 10 mg PO BEDTIME 08/10/20 02/26/24 omeprazole 20 mg capsule,delayed 20 mg PO DAILY 06/22/21 02/26/24 release omega 0-qxp-til-fish oil 300 1 cap PO DAILY 12/20/21 02/26/24 mg-1,000 mg capsule,delayed release (Fish Oil) albuterol sulfate 90 mcg/actuation 1 inh inhalation QID 09/12/23 02/26/24 aerosol inhaler ketoconazole 2 % topical gel 1 applic topical DAILY 09/12/23 02/26/24 metronidazole 1 % topical gel 1 applic topical DAILY 09/12/23 02/26/24 magnesium 200 mg tablet 800 mg PO DAILY 10/16/23 02/26/24 Previous Rx's Medication Instructions Recorded losartan 50 mg tablet 50 mg PO DAILY #90 tabs 08/30/23 diazepam 5 mg tablet (Valium) 2.5 mg (1/2 x 5 mg) PO BID anxiety 11/30/23 #30 tabs diclofenac sodium 1 % topical gel 2 g topical QID PRN pain #100 grams 01/10/24 carvedilol 3.125 mg tablet See Rx Instructions .Route 02/04/24 .COMPLEX #180 tabs buspirone 10 mg tablet 20 mg (2 x 10 mg) PO TID 1 month 02/11/24 #180 tabs hydroxyzine HCl 25 mg tablet 25 mg PO BID PRN anxiety #180 tabs 02/11/24 mirtazapine 45 mg tablet 45 mg PO BEDTIME #30 tabs 02/11/24 paliperidone 6 mg tablet,extended 6 mg PO .5 pm #30 tabs 02/11/24 release 24 hr sertraline 100 mg tablet (Zoloft) 200 mg (2 x 100 mg) PO .morning 02/11/24 #60 tabs Allergies Allergy/AdvReac Type Severity Reaction Status Date / Time imipramine Allergy Unknown Unknown Verified 02/26/24 13:18 Penicillins Allergy Unknown Unknown Verified 02/26/24 13:18 ziprasidone [From Geodon] Allergy Unknown Unknown Verified 02/26/24 13:18 duloxetine [From Cymbalta] AdvReac Intermediate headaches Verified 02/26/24 13:18 Review of Systems Narrative: Constitutional symptoms: Negative except as documented in HPI. Skin symptoms: Negative except as documented in HPI. Eye symptoms: Negative except as documented in HPI. ENMT symptoms: Negative except as documented in HPI. Respiratory symptoms: Negative except as documented in HPI. Cardiovascular symptoms: Negative except as documented in HPI. Gastrointestinal symptoms: Negative except as documented in HPI. Genitourinary symptoms: Negative except as documented in HPI. Musculoskeletal symptoms: Negative except as documented in HPI. Neurologic symptoms: Negative except as documented in HPI. Psychiatric symptoms: Negative except as documented in HPI. Endocrine symptoms: Negative except as documented in HPI. PFSH ED PFSH: Medical History Sleep apnea Hyperthyroidism Hypercholesteremia Chronic post-traumatic stress disorder Intellectual functioning disability Obstructive sleep apnea Generalized anxiety disorder Major depressive disorder, recurrent episode with mood-congruent psychotic features Surgical History History of hysterectomy History of breast lump removal History of lung biopsy History of colonoscopy Family History Grandfather CAD (coronary artery disease) Grandmother Congestive heart failure (CHF) Father Cancer Mother COPD (chronic obstructive pulmonary disease) Congestive heart failure (CHF) Hypertension Atrial fibrillation Sister CAD (coronary artery disease) Social History Smoking and tobacco/nicotine status: never used tobacco/nicotine Second hand smoke exposure: No Alcohol intake: never Substance/Drug Use: never Adopted: No Caregiver/support person: Yes ([employer] [facility] and [facility]) Lives independently: Yes Household members: none Housing: Apartment Marital status: Single Number of children: 0 Number of grandchildren: 0 Highest education level completed: Master's Degree Education level details: [employer] service: No Current occupational status: disabled Current occupational exposures/hazards: No Pets and animals: Yes Pets & animals: dog(s) Leisure activites: music, reading and other Leisure activities details: watch tv, play on phone, pray, involved with rastafari Sexually active: No Do you think of yourself as: Straight/Heterosexual Current gender identity: Female Kandy/Druze: Mormonism Special kandy needs: No Agree to transfusion: Yes Female Reproductive History: Para: 0 Spontaneous abortions: No Physical Exam Narrative: EXAM NARRATIVE: General: Alert, no acute distress. Skin: Warm, dry. Head: Normocephalic, atraumatic. Neck: Supple, trachea midline. Eye: Extraocular movements are intact. Ears, nose, mouth and throat: mucosa moist. Cardiovascular: Regular, Normal peripheral perfusion. Respiratory: Lungs are clear to auscultation, respirations are non-labored, breath sounds are equal, Symmetrical chest wall expansion. Gastrointestinal: Soft, Nontender, Non distended Musculoskeletal: Normal ROM, no deformity. Neurological: Alert and oriented, No focal neurological deficit observed. Psychiatric: Cooperative, appropriate mood & affect. Course Vital Signs: Vital signs: Vital Signs Temperature 98.3 F 03/04/24 18:15 Pulse Rate 66 03/04/24 18:45 Respiratory Rate 18 03/04/24 18:45 Blood Pressure 132/77 03/04/24 18:45 Pulse Oximetry 98 03/04/24 18:45 Oxygen Delivery Me thod Room Air 03/04/24 18:45 MDM - General Adult Medical Decision Making Chest x-ray: No acute process. No infiltrate. No pneumothorax. This was reviewed and interpreted by myself the emergency room physician. I also reviewed the radiology report. Assessment and plan: Aspiration - Discharged home - Discussed plan with patient. Answered any questions. - Evaluation and treatment of this problem were appropriate in the emergency setting. Lab Data Radiology Impressions Chest X-Ray 03/04/24 18:17 IMPRESSION: No acute findings. All radiology interpretation(s) finalized by discharge Discharge Plan Discharge Patient Disposition: Home Clinical Impression: Aspiration into airway Condition: Stable Prescriptions: No Action levothyroxine 100 mcg capsule 100 mcg PO DAILY cetirizine [Zyrtec] 10 mg tablet 10 mg PO DAILY Multivitamin Women 50 Plus 8 mg iron-400 mcg-300 mcg tablet 1 tab PO DAILY simvastatin 10 mg tablet 10 mg PO BEDTIME omeprazole 20 mg capsule,delayed release(DR/EC) 20 mg PO DAILY magnesium 200 mg tablet 800 mg PO DAILY albuterol sulfate 90 mcg/actuation HFA aerosol inhaler 1 inh inhalation QID metronidazole 1 % gel 1 applic topical DAILY ketoconazole 2 % gel 1 applic topical DAILY diclofenac sodium 1 % gel 2 g topical QID PRN (Reason: pain) Qty: 100 0RF losartan 50 mg tablet 50 mg PO DAILY Qty: 90 3RF diazepam [Valium] 5 mg tablet 2.5 mg PO BID Qty: 30 3RF Rx Instructions: Take half tablet at 8 am and 3 pm carvedilol 3.125 mg tablet See Rx Instructions .ROUTE .COMPLEX Qty: 180 3RF Dose Instruction: TAKE 1 TABLET BY MOUTH TWICE A DAY MUST ADMINISTER WITH A MEAL/FOOD Rx Instructions: TAKE 1 TABLET BY MOUTH TWICE A DAY MUST ADMINISTER WITH A MEAL/FOOD buspirone 10 mg tablet 20 mg PO TID 30 Days Qty: 180 6RF hydroxyzine HCl 25 mg tablet 25 mg PO BID PRN (Reason: anxiety) Qty: 180 2RF Rx Instructions: Take one tablet twice per day as needed for anxiety paliperidone 6 mg tablet extended release 24 hr 6 mg PO .5 pm Qty: 30 6RF Rx Instructions: Take one tablet at 5 pm sertraline [Zoloft] 100 mg tablet 200 mg PO .morning Qty: 60 6RF Rx Instructions: Take two tablets in morning mirtazapine 45 mg tablet 45 mg PO BEDTIME Qty: 30 6RF Rx Instructions: Take one tablet at bedtime Fish Oil 300-1,000 mg Capsule,Delayed Release(Dr/Ec) 1 cap PO DAILY Discharge Orders: Discharge ED (Routine); Ordered 03/04/24 Ordered By: Rabia Forrest Referrals: Linda Berg DO [Primary Care Provider] - Discharge Diet: Usual diet Discharge Activity: Increase activity as tolerated Patient Instructions: Opioid Safety, Pain Management Activity Restrictions/Additional Instructions: Thank you for choosing [facility] for your healthcare needs today. Please realize this is an emergency room and that we are providing you with a medical screening exam and this may not be complete and all inclusive of all the testing and or work up that you may need to determine your ailment or severity of your illness. You have been screened and evaluated and felt safe for discharge. Health conditions do change or evolve sometimes and as such it is important that you follow up with your Primary Doctor to be re checked, 3-5 days is a general good time frame for follow up. You are always welcome to return to the ED for re assessment if your symptoms are worsening or you have new concerns Coding Level of Care Code ED Humanities Department Chair for Tiffanie Hastings
[2024-03-04 18:45] VITALS: BP 132/77; PULSE 66; RESP 18; O2SAT 98
[2024-03-04 19:36] VITALS: BP 133/97; PULSE 64; O2SAT 99
== END 2024-03-04 19:37 | disposition home or self-care (01) ==
PROVIDERS: Emergency Provider Emergency Medicine; PCP Family Medicine
DX: L57.0 Actinic keratosis (principal); L81.4 Other melanin hyperpigmentation; L57.8 Other skin changes due to chronic exposure to nonionizing radiation; D22.5 Melanocytic nevi of trunk; T14.8XXA Other injury of unspecified body region, initial encounter; X58.XXXA Exposure to other specified factors, initial encounter
CPT/HCPCS: 17000; 71045; 99213; 99283

== ENCOUNTER → 2024-06-12 10:37 | Outpatient (BNVA) | payer MEDICARE, MEDICAID, SELFPAY ==
[2024-01-21 08:15] VITALS: BMI 48.8
== END ==
PROVIDERS: PCP Family Medicine; Visit Provider Nurse Practitioner Family
DX: L30.4 Erythema intertrigo (principal); D22.5 Melanocytic nevi of trunk; T14.8XXA Other injury of unspecified body region, initial encounter; X58.XXXA Exposure to other specified factors, initial encounter; D48.5 Neoplasm of uncertain behavior of skin
CPT/HCPCS: 69100; 99214

== ENCOUNTER → 2024-08-13 10:58 | Outpatient (BNVA) | payer MEDICARE, MEDICAID, SELFPAY ==
[2024-08-13 10:48] VITALS: BMI 48.8
== END ==
PROVIDERS: PCP Family Medicine; Visit Provider Nurse Practitioner Family
DX: L57.8 Other skin changes due to chronic exposure to nonionizing radiation (principal); X32.XXXA Exposure to sunlight, initial encounter; L57.0 Actinic keratosis; L81.4 Other melanin hyperpigmentation
CPT/HCPCS: 17000; 99213

== ENCOUNTER 2024-08-29 11:59 | Outpatient (CLI) | payer MEDICARE, MEDICAID, SELFPAY ==
[2024-08-13 10:48] VITALS: BMI 48.8
--- NOTE | 2024-08-29 12:01 | MM_ITS ---
WS: [id number] BILATERAL 3D TOMOSYNTHESIS DIGITAL SCREENING MAMMOGRAPHY WITH CAD CLINICAL INFORMATION: SCREENING HISTORY: Screening mammogram. No current complaints. COMPARISON: 2023 TECHNIQUE: Bilateral CC and MLO views. FINDINGS: The breasts are composed of heterogeneous fibroglandular density tissue, which can limit the detection of small underlying mass lesions. No suspicious mass, asymmetry, calcifications, or architectural distortion. No evidence of malignancy. Benign calcifications. MM/MM [facility] tomosynthesis [id number] IMPRESSION: DENSITY: The breasts are heterogeneously dense, which may obscure small masses. BI-RADS: 2 - Benign FOLLOW UP: 1 Year Follow-up Recommend return to annual screening mammography.
== END 2024-08-29 12:00 | disposition home or self-care (01) ==
PROVIDERS: PCP Family Medicine; Visit Provider Family Medicine
DX: Z12.31 Encounter for screening mammogram for malignant neoplasm of breast (principal); R92.323 Mammographic fibroglandular density, bilateral breasts; R92.1 Mammographic calcification found on diagnostic imaging of breast
CPT/HCPCS: 77063; 77067

== ENCOUNTER → 2024-09-17 10:24 | Outpatient (BNVA) | payer MEDICARE, MEDICAID, SELFPAY ==
[2024-08-13 10:48] VITALS: BMI 48.8
== END ==
PROVIDERS: PCP Family Medicine; Visit Provider Nurse Practitioner Family
DX: I10 Essential (primary) hypertension (principal); I47.0 Re-entry ventricular arrhythmia; G47.33 Obstructive sleep apnea (adult) (pediatric); E78.00 Pure hypercholesterolemia, unspecified; F33.3 Major depressive disorder, recurrent, severe with psychotic symptoms
CPT/HCPCS: 99213

== ENCOUNTER → 2024-09-18 12:42 | Outpatient (BNVA) | payer MEDICARE, MEDICAID, SELFPAY ==
[2024-08-13 10:48] VITALS: BMI 48.8
== END ==
PROVIDERS: PCP Family Medicine; Visit Provider Podiatrist Foot & Ankle Surgery
DX: M72.2 Plantar fascial fibromatosis (principal); M79.672 Pain in left foot
CPT/HCPCS: 20550; J1100; J3301; J3490

== ENCOUNTER → 2024-12-09 13:15 | Outpatient (BNVA) | payer MEDICARE, MEDICAID, SELFPAY ==
[2024-10-28 11:12] VITALS: BP 160/91; BMI 50.3
== END ==
PROVIDERS: PCP Family Medicine; Visit Provider Nurse Practitioner Family
DX: L71.8 Other rosacea (principal); L81.4 Other melanin hyperpigmentation; L57.8 Other skin changes due to chronic exposure to nonionizing radiation; X32.XXXA Exposure to sunlight, initial encounter; L57.0 Actinic keratosis
CPT/HCPCS: 99214

== ENCOUNTER → 2025-03-24 12:21 | Outpatient (BNVA) | payer OTHER, SELFPAY ==
[2024-10-28 11:12] VITALS: BP 160/91; BMI 50.3
== END ==
PROVIDERS: PCP Family Medicine; Visit Provider Nurse Practitioner Psychiatric/Mental Health
DX: F33.3 Major depressive disorder, recurrent, severe with psychotic symptoms (principal); F41.1 Generalized anxiety disorder; F43.12 Post-traumatic stress disorder, chronic
CPT/HCPCS: 80061; 83036

== ENCOUNTER 2025-04-09 09:58 | Outpatient (CLI) | payer MEDICARE, MEDICAID, SELFPAY ==
[2024-10-28 11:12] VITALS: BP 160/91; BMI 50.3
[2025-04-09 09:25] VITALS: BP 155/89; BMI 52.5
[2025-04-09 10:49] VITALS: PULSE 54; RESP 18; O2SAT 97
--- NOTE | 2025-04-09 11:17 | XR_ITS ---
WS: [id number] Chest 2 views, 04/09/2025 Clinical Data: DYSPNEA ON EXERTION/HYPOXIA Comparison: Portable chest, 03/04/2024 Findings: No nodules, masses or effusions are seen. The heart is normal. The pulmonary vascularity is not increased. No pneumonia or pneumothorax is seen. XR/XR chest 2V* [id number] Impression: Negative chest.
== END 2025-04-09 09:59 | disposition home or self-care (01) ==
LOC: RT 10:04
PROVIDERS: PCP Family Medicine; Visit Provider Family Medicine
DX: R09.02 Hypoxemia (principal)
CPT/HCPCS: 71046; 94060; 94729; J7613